=== PATIENT | male | born 1950 | race Caucasian/White ===

== ENCOUNTER → 2018-12-15 13:20 | Outpatient (CLI) | payer MEDICARE, SELFPAY ==
--- NOTE | 2018-12-15 | DI.MRI.S_ITS ---
PROCEDURE: MR CERVICAL SPINE WO CON INDICATIONS: CERVICAL STENOSIS/CHRONIC HEADACHES TECHNIQUE: Noncontrast sagittal T1 spin echo and T2 fast spin echo, sagittal STIR, foraminal oblique sagittal T2 fast spin echo, and axial gradient echo or T2 fast spin echo through the cervical spine. COMPARISON: [facility], MR, MR HEAD/BRAIN WO CON, 12/15/2018, 14:17. FINDINGS: Image quality: This examination is limited by involuntary motion artifact. Alignment and Curvature: There is normal bony alignment. Bone Marrow: Marrow demonstrates normal overall signal. Spinal Cord: Visualized spinal cord has normal size and signal. No cerebellar tonsillar herniation. Paraspinous Soft Tissues: No paravertebral masses. Prevertebral soft tissues are normal in thickness. C2-C3: Moderate loss of disc height is seen. Loss of disc signal is seen. Mild to moderate disc osteophyte complex is seen, which is eccentric to the right. Mild facet joint hypertrophy is seen. There is moderate bilateral neural foraminal narrowing seen. Minimal central canal narrowing is seen. C3-C4: Moderate loss of disc height is seen. Loss of disc signal is seen. Moderate disc osteophyte complex is seen, which is eccentric to the right. There is moderate to prominent right-sided and moderate left-sided neural foraminal narrowing seen. Moderate to severe right-sided and at least moderate left-sided neural foraminal narrowing is seen. Moderate central canal narrowing is seen, with associated mass effect upon the ventral spinal cord. C4-C5: Moderate to severe loss of disc height and disc signal are seen. Moderate disc osteophyte complex is seen, which is eccentric to the right. Moderate facet hypertrophy is seen, right worse than left. There is moderate to severe bilateral neural foraminal narrowing seen. Moderate central canal narrowing is seen. There is associated mass effect upon the ventral spinal cord. C5-C6: Moderate to severe loss of disc height and disc signal are seen. At least moderate disc osteophyte complex is seen. Uncovertebral joint hypertrophy is seen at this level. At least moderate bilateral neural facet hypertrophy is seen. There is moderate to severe bilateral neural foraminal narrowing seen at this level. At least moderate central canal narrowing is seen, initiated mass effect upon the ventral spinal cord. C6-C7: At least moderate loss of disc height and disc signal can be seen. Moderate disc osteophyte complex is seen, which is eccentric to the left. Moderate bilateral facet hypertrophy is seen, right worse than left. There is at least moderate right-sided and moderate to severe left-sided neural foraminal narrowing seen and mild to moderate central canal narrowing is seen. C7-T1: At least moderate loss of disc height and disc signal can be seen. Moderate to prominent disc osteophyte complex is seen. Moderate facet joint hypertrophy is seen. There is moderate to severe bilateral neural foraminal narrowing seen, right worse than left. Moderate central canal narrowing is seen, with minimal mass effect upon the ventral spinal cord. IMPRESSION: Multiple levels of cervical spine degenerative change are seen, which are overall most prominent at the C4-C5 and C5-C6 levels. Dictated by: Rojas Kenney M.D. on 12/17/2018 at 9:42 Approved by: Rojas Kenney M.D. on 12/17/2018 at 9:48
--- NOTE | 2018-12-15 | DI.MRI.S_ITS ---
PROCEDURE: MR HEAD/BRAIN WO CON INDICATIONS: CERVICAL STENOSIS/CHRONIC HEADACHES TECHNIQUE: Non-contrast axial T1 spin echo, axial T2 fast spin echo, sagittal and axial FLAIR, coronal T2 fast spin echo, axial gradient echo, axial diffusion and ADC through the brain. COMPARISON: None. FINDINGS: Image quality: Excellent. CSF spaces: Ventricles appear symmetric in size and shape. Basal cisterns are patent. No extra-axial fluid collections. Brain: No intracranial bleeds or mass effects. There is cerebral volume loss for age. There are periventricular and deep white matter chronic small vessel ischemic changes. Brainstem appears normal. Diffusion-weighted images show no acute ischemic insults. No chronic ischemic insults. Normal intravascular flow voids are present. Skull and face: Calvarial bone marrow is normal in signal. Orbits are normal. Sinuses: Sinuses and mastoids are clear. IMPRESSION: Moderate microvascular atherosclerotic change in the deep white matter of each hemisphere but no sign of acute or subacute stroke, mass lesion, or hemorrhage. Dictated by: Kj Anders M.D. on 12/17/2018 at 10:10 Approved by: Kj Anders M.D. on 12/17/2018 at 10:11
== END ==
PROVIDERS: PCP Family Medicine; Visit Provider Family Medicine
DX: M47.812 Spondylosis without myelopathy or radiculopathy, cervical region (principal); M48.02 Spinal stenosis, cervical region; R51 Headache
CPT/HCPCS: 70551; 72141

== ENCOUNTER 2020-05-21 11:55 | Inpatient (IN) | payer MEDICARE, SELFPAY ==
[2020-05-21] VITALS (23 sets, daily range): BP systolic 101–131; BP diastolic 70–89; PULSE 72–93; RESP 11–22; TEMP 36.2–36.9; O2SAT 85–100; BMI 24.1
--- NOTE | 2020-05-21 | DI.RAD.S_ITS ---
PROCEDURE: XR HIP LT 1V INDICATIONS: INTRA OP LEFT HIP TECHNIQUE: 2 view(s) of the hip acquired. COMPARISON: None. FINDINGS: Bones: Patient is status post left hip arthroplasty, with hardware components in expected positions. The hip joint appears congruent. The visualized bony structures appear intact. Soft tissues: Overlying postoperative changes are noted. No suspicious soft tissue densities. IMPRESSION: Postsurgical changes compatible with left hip arthroplasty. Dictated by: Krystal Jolly MD, PhD on 05/21/2020 at 17:58 Approved by: Krystal Jolly MD, PhD on 05/21/2020 at 17:59
--- NOTE | 2020-05-21 | DI.RAD.S_ITS ---
PROCEDURE: XR PELVIS 1-2V INDICATIONS: ANTERIOR LEFT HIP, post op TECHNIQUE: 1 view of the lower pelvis acquired. [facility] 11[facility], 10:36. FINDINGS: Bones: Patient is status post left hip arthroplasty, with hardware components in expected positions. The hip joint appears congruent. The visualized bony structures appear intact. Soft tissues: Overlying postoperative changes are noted. No suspicious soft tissue densities. IMPRESSION: Postop changes from left total hip arthroplasty with anatomic left hip alignment. Prior right total hip arthroplasty. No fracture or dislocation. Dictated by: Denver Segovia M.D. on 05/21/2020 at 17:22 Approved by: Denver Segovia M.D. on 05/21/2020 at 17:23
--- NOTE | 2020-05-21 12:08 | ED.GENADULT ---
HPI - General Adult General Chief complaint: Syncope Stated complaint: syncope / hip fracture Time Seen by Provider: 05/21/20 12:00 Source: patient and EMS Mode of arrival: EMS Limitations: no limitations History of Present Illness HPI narrative: 70-year-old gentleman with a history of heart failure and COPD was bending over fixing a toilet earlier today. Stood up and as he was walking out of the bathroom began feeling lightheaded and within 20 seconds new that he was going to faint. Tried to hold on to the edge of the stairs but felt himself falling onto his left hip. He states that he did not hit his head. There was no loss of bowel or bladder and no seizure-like activity. He complains of no chest pain, dyspnea, palpitations, diaphoresis, abdominal pain. Has not recently had any fevers, cough, chills. He states he has been quite active over the last number number of days with no ill effects at all. He states that he typically uses inhalers and his medicines to help with congestive heart failure none of which she took this morning. He is complaining of left hip pain 05/30 with any movement and pain-free while at rest. He is able to move all toes and has full sensation and pulses distally. Related Data Home Medications Medication Instructions Recorded Confirmed [MULTIVITAMIN] PO DAILY #0 06/03/11 acetaminophen [Tylenol Extra 500 mg PO BID #0 04/09/13 05/21/20 Strength] [PROBIOTICS] Q DAY #0 10/25/16 Wellbutrin XL 150 mg PO BID 05/21/20 05/21/20 duloxetine 60 mg PO BEDTIME 05/21/20 05/21/20 furosemide 30 mg PO DAILY 05/21/20 05/21/20 lisinopril 5 mg PO DAILY 05/21/20 05/21/20 metoprolol succinate 25 mg PO DAILY 05/21/20 05/21/20 mupirocin 1 applic TOPICAL QID 05/21/20 05/21/20 triamcinolone acetonide 0 gm TOPICAL BID PRN 05/21/20 05/21/20 Previous Rx's Medication Instructions Recorded Combivent Respimat 1 puff INH QID #3 inh 05/13/16 fluticasone propionate [Flonase 0 INTRANASAL SEE INSTRUCTIONS #1 05/02/17 Allergy Relief] bot fluoxetine 20 mg PO QDAY #90 cap 12/28/16 acetaminophen 975 mg PO TID #40 tab 05/22/20 aspirin 81 mg PO BID #40 tab 05/22/20 docusate sodium [DOK] 100 mg PO BID #40 cap 05/22/20 oxycodone 5 mg PO Q4-6H PRN #40 tab 05/22/20 Allergies Allergy/AdvReac Type Severity Reaction Status Date / Time hy- [From Vertical Acuity] Allergy Intermediate INTRAARTICULAR Verified 05/21/20 12:02 SWELLING, PAIN moxifloxacin Allergy Mild RASH Verified 05/21/20 12:02 Review of Systems Review of Systems Narrative: Remainder of review of systems including constitutional, ENT, cardiovascular, respiratory, GI, , musculoskeletal, skin, neurologic and psychiatric systems reviewed and are unremarkable except as noted in HPI. Patient History Medical History Chronic obstructive pulmonary disease (06/13/16) Congestive heart failure (Acute) Malignant neoplasm of prostate (07/29/16) Mixed hyperlipidemia (06/13/16) Osteoporosis (06/13/16) Surgical History History of carpal tunnel repair History of hip replacement Status post appendectomy Status post knee surgery Status post knee surgery Family History Father Heart disease Mother Hypertension Mental health problem COPD (chronic obstructive pulmonary disease) Social History household members: spouse Smoking Status: Former smoker Smoking Status: Unknown if ever smoked alcohol intake frequency: holidays/special occasions only Substance Use Type: does not use Exam Narrative Exam Narrative: General: Healthy appearing, in no acute distress. Able to give a complete and coherent history. Well-nourished well-developed HEENT: Moist mucous membranes, normal sclera with reactive pupils, no abrasions or contusions to the head Neck: No JVD, supple, no cervical spine tenderness Respiratory: Lungs with minimal scattered wheezes in all lung dejesus but no rales no rhonchi. Full and symmetrical air movement Cardiac: Regular rate and rhythm no murmurs no bruits Abdomen: Soft nontender good bowel tones, no flank pain Skin: Warm and dry, no rashes Neurologic: Grossly neurologically intact with no obvious asymmetries or abnormalities Extremities: Tender over the left greater trochanter with mild tenderness with pelvic ring manipulation. He has no low or mid back tenderness to palpation. Left leg is slightly foreshortened no significant rotational component appreciated at the ankle Psych: Cooperative, appropriate insight and affect Initial Vital Signs Initial Vital Signs: Vital Signs Temperature 98.4 F 05/21/20 11:58 Pulse Rate 80 05/21/20 11:58 Respiratory Rate 16 05/21/20 11:58 Blood Pressure 126/89 05/21/20 11:58 Pulse Oximetry 91 05/21/20 11:58 Course Orders Ordered: Acetaminophen (Tylenol) 975 mg PO TID COUNT INCLUDES THE [facility] Last Admin: 05/22/20 10:08 Dose: 975 mg Documented by: Admin: 05/21/20 21:12 Dose: 975 mg Documented by: JESSICA Al Hydrox/Mg Hydrox/Simethicone (Maalox Plus) 30 ml PO Q6HR PRN PRN Reason: Dyspepsia Albuterol/Ipratropium (Combivent Respimat) 1 puff INH QID COUNT INCLUDES THE [facility] Last Admin: 05/22/20 09:06 Dose: 1 puff Documented by: Admin: 05/21/20 21:16 Dose: 1 puff Documented by: JESSICA Aspirin (Aspirin Ec) 81 mg PO BID COUNT INCLUDES THE [facility] Last Admin: 05/22/20 10:08 Dose: 81 mg Documented by: Admin: 05/21/20 21:11 Dose: 81 mg Documented by: JESSICA Bisacodyl (Dulcolax) 10 mg ND DAILY PRN PRN Reason: Constipation Bupropion HCl (Wellbutrin Xl) 150 mg PO BID COUNT INCLUDES THE [facility] Last Admin: 05/22/20 10:10 Dose: 150 mg Documented by: KYRIE Calcium Carbonate (Tums) 1,000 mg PO Q4HR PRN PRN Reason: Dyspepsia Calcium Carbonate/Cholecalciferol (Oyster Shell 500-Vit D3 200 Tb) 1 each PO BIDWM COUNT INCLUDES THE [facility] Last Admin: 05/22/20 10:08 Dose: 1 each Documented by: KYRIE Docusate Sodium (Colace) 100 mg PO BID COUNT INCLUDES THE [facility] Last Admin: 05/22/20 10:09 Dose: Not Given Documented by: Admin: 05/21/20 21:11 Dose: 100 mg Documented by: JESSICA Duloxetine HCl (Cymbalta) 60 mg PO BEDTIME COUNT INCLUDES THE [facility] Last Admin: 05/21/20 21:12 Dose: 60 mg Documented by: JESSICA Furosemide (Lasix) 30 mg PO DAILY COUNT INCLUDES THE [facility] Hydromorphone HCl (Dilaudid) 1 mg IV Q6HR PRN PRN Reason: Pain, Severe (7-10) Hydromorphone HCl (Dilaudid) 0.5 mg IV Q6HR PRN PRN Reason: Pain, Moderate (4-6) Lisinopril (Zestril) 5 mg PO DAILY COUNT INCLUDES THE [facility] Magnesium Hydroxide (Milk Of Magnesia) 30 ml PO DAILY PRN PRN Reason: Constipation Metoprolol Succinate (Toprol Xl) 25 mg PO DAILY COUNT INCLUDES THE [facility] Mupirocin (Bactroban Oint) 1 applic TOP QID COUNT INCLUDES THE [facility] Last Admin: 05/22/20 10:10 Dose: Not Given Documented by: Admin: 05/21/20 21:13 Dose: Not Given Documented by: JESSICA Naloxone HCl (Narcan) 0.2 mg IV Q2MIN PRN PRN Reason: Opiate Reversal Ondansetron HCl (Zofran Odt) 4 mg PO Q4HR PRN PRN Reason: Nausea Ondansetron HCl (Zofran) 4 mg IV Q4HR PRN PRN Reason: Nausea And Vomiting Oxycodone HCl (Percolone) 5 mg PO Q3HR PRN PRN Reason: Pain, Moderate (4-6) Last Admin: 05/22/20 02:07 Dose: 5 mg Documented by: JULES Polyethylene Glycol (Miralax) 17 gm PO DAILY PRN PRN Reason: Constipation Promethazine HCl (Phenadoz) 12.5 mg ND Q6HR PRN PRN Reason: Nausea And Vomiting Tamsulosin HCl (Flomax) 0.4 mg PO DAILY COUNT INCLUDES THE [facility] Last Admin: 05/22/20 10:10 Dose: Not Given Documented by: KYRIE Discontinued Medications Albuterol (Ventolin) 2.5 mg INH NOW PRN PRN Reason: Coughing, Wheezing, Dyspnea Docusate Sodium (Colace) 100 mg PO BID COUNT INCLUDES THE [facility] Fentanyl (Sublimaze) 0 mcg IV Q5M PRN PRN Reason: Pain, Moderate (4-6) Fluoxetine HCl (Prozac) 20 mg PO DAILY COUNT INCLUDES THE [facility] Hydromorphone HCl (Dilaudid) 0.5 mg IV Q15MIN PRN PRN Reason: Pain, Last Admin: 05/21/20 13:48 Dose: 0.5 mg Documented by: Admin: 05/21/20 12:22 Dose: 0.5 mg Documented by: JAKUB Hydromorphone HCl (Dilaudid) 0 mg IV Q5M PRN PRN Reason: Pain, Severe (7-10) Sodium Chloride (Normal Saline 0.9%) 1,000 mls @ 150 mls/hr IV CONT MARIAN Last Infusion: 05/21/20 13:29 Dose: 0 mls/hr Documented by: Admin: 05/21/20 12:34 Dose: 150 mls/hr Documented by: JAKUB Lactated Ringer's (Lactated Ringers) 1,000 mls @ 42 mls/hr IV CONT MARIAN Last Infusion: 05/21/20 18:20 Dose: 0 mls/hr Documented by: Admin: 05/21/20 15:15 Dose: 42 mls/hr Documented by: Infusion: 05/21/20 15:15 Dose: 0 mls/hr Documented by: Infusion: 05/21/20 14:39 Dose: 0 mls/hr Documented by: Admin: 05/21/20 13:32 Dose: 42 mls/hr Documented by: JAKUB Cefazolin Sodium/Dextrose (Ancef) 2 gm in 100 mls @ 200 mls/hr IV NOW ONE Stop: 05/21/20 16:52 Last Infusion: 05/21/20 16:00 Dose: 0 mls/hr Documented by: Admin: 05/21/20 15:30 Dose: 200 mls/hr Documented by: LEONARD Lactated Ringer's (Lactated Ringers) 1,000 mls @ 125 mls/hr IV CONT MAIRAN Last Admin: 05/21/20 23:41 Dose: Not Given Documented by: JESSICA Cefazolin Sodium/Dextrose (Ancef) 2 gm in 100 mls @ 200 mls/hr IV Q8H MARIAN Stop: 05/22/20 07:59 Last Admin: 05/22/20 06:32 Dose: 200 mls/hr Documented by: Infusion: 05/22/20 02:07 Dose: 0 mls/hr Documented by: Admin: 05/22/20 00:20 Dose: 200 mls/hr Documented by: JULES Lactated Ringer's (Lactated Ringers) 1,000 mls @ 125 mls/hr IV CONT MARIAN Stop: 05/22/20 00:09 Last Admin: 05/21/20 20:16 Dose: 125 mls/hr Documented by: JESSICA Ketorolac Tromethamine (Toradol) 30 mg INJ NOW ONE Stop: 05/21/20 16:29 Last Admin: 05/21/20 16:29 Dose: 30 mg Documented by: JOSE Morphine Sulfate (Morphine) 4 mg INJ NOW ONE Stop: 05/21/20 16:28 Last Admin: 05/21/20 16:27 Dose: 4 mg Documented by: JOSE Ondansetron HCl (Zofran) 4 mg IV PRN PRN PRN Reason: nausea Last Admin: 05/21/20 12:22 Dose: 4 mg Documented by: JAKUB Ondansetron HCl (Zofran) 4 mg IV NOW PRN PRN Reason: Nausea And Vomiting Ondansetron HCl (Zofran) 4 mg IV Q8HR PRN PRN Reason: Nausea And Vomiting Oxycodone HCl (Percolone) 5 mg PO Q6HR PRN PRN Reason: Pain, Moderate (4-6) Oxycodone/Acetaminophen (Percocet 5/325) 1 tab PO PACUNOW PRN PRN Reason: Mild or Moderate Pain Ropivacaine (Naropin 0.5% Pf 20ml) 40 ml INJ NOW ONE Stop: 05/21/20 16:25 Last Admin: 05/21/20 16:26 Dose: 40 ml Documented by: JOSE Tranexamic Acid (Cyklokapron) 1,000 mg IV NOW ONE Stop: 05/21/20 16:25 Last Admin: 05/21/20 17:25 Dose: 1,000 mg Documented by: Admin: 05/21/20 16:10 Dose: 1,000 mg Documented by: GABY Vital Signs Vital signs: Vital Signs - 8 hr 05/21/20 11:58 05/21/20 12:08 05/21/20 12:12 Temperature 98.4 F Pulse Rate 80 72 77 Respiratory Rate 16 11 L Blood Pressure 126/89 123/72 Pulse Oximetry 91 89 L 88 L 05/21/20 12:31 05/21/20 12:50 05/21/20 13:00 Temperature Pulse Rate 79 84 Respiratory Rate 16 Blood Pressure 130/86 Pulse Oximetry 95 85 L 05/21/20 13:30 Temperature Pulse Rate 80 Respiratory Rate 17 Blood Pressure 130/78 Pulse Oximetry 96 Medical Decision Making Medical Records Medical records reviewed: Yes I reviewed the patient's medical records. Lab Data Lab results reviewed: Yes I reviewed the patient's lab results. Result diagrams: 05/22/20 04:55 05/21/20 12:05 Labs: Lab Results 05/21/20 05/21/20 05/21/20 Range/Units 12:05 12:05 12:05 WBC 9.4 (4.5-11.0) X10^3/uL RBC 4.31 L (4.5-5.9) X10^6/uL Hgb 13.2 L (13.5-17.5) g/dL Hct 40.2 L (41-53) % MCV 93.3 (80-100) fL MCH 30.5 (26-34) PG MCHC 32.7 (30-36) % RDW 14.1 (11.6-14.8) % Plt Count 245 (150-400) X10^3/uL Neut % (Auto) 83.9 H (50-75) % Lymph % (Auto) 9.6 L (25-40) % [place] % (Auto) 5.7 (3-14) % Eos % (Auto) 0.6 L (2-4) % Baso % (Auto) 0.2 (0-2) % Neut # (Auto) 7900 H (3859-1844) /uL Lymph # (Auto) 900 L (9450-0161) /uL [place] # (Auto) 500 (0-900) /uL Eos # (Auto) 100 (0-450) /uL Baso # (Auto) 0 (0-100) /uL Sodium 139 (137-145) mmol/L Potassium 4.7 (3.4-5.1) mmol/L Chloride 104 (98-107) mmol/L Carbon Dioxide 32 (22-32) mmol/L BUN 25 H (9-20) mg/dL Creatinine 0.87 (0.66-1.25) mg/dL Estimated GFR > 60.0 (>60) mL/min BUN/Creatinine Ratio 28.7 H (6-22) Glucose 105 (80-110) mg/dL Calcium 9.2 (8.4-10.2) mg/dL Magnesium (1.6-2.3) mg/dL Total Bilirubin 0.5 (0.2-1.3) mg/dL AST 32 (17-59) IU/L ALT 21 (<50) IU/L Alkaline Phosphatase 71 (38-126) U/L Troponin I < 0.012 (0.01-0.034) ng/mL Total Protein 7.2 (6.3-8.2) g/dL Albumin 4.1 (3.5-5.0) g/dL Globulin 3.1 (1.7-4.1) g/dL Albumin/Globulin Ratio 1.3 (1.0-2.8) COVID-19 PCR (Negative) Blood Type O Positive Antibody Screen Negative 05/21/20 05/21/20 Range/Units 12:05 12:30 WBC (4.5-11.0) X10^3/uL RBC (4.5-5.9) X10^6/uL Hgb (13.5-17.5) g/dL Hct (41-53) % MCV (80-100) fL MCH (26-34) PG MCHC (30-36) % RDW (11.6-14.8) % Plt Count (150-400) X10^3/uL Neut % (Auto) (50-75) % Lymph % (Auto) (25-40) % [place] % (Auto) (3-14) % Eos % (Auto) (2-4) % Baso % (Auto) (0-2) % Neut # (Auto) (0204-7851) /uL Lymph # (Auto) (4368-9155) /uL [place] # (Auto) (0-900) /uL Eos # (Auto) (0-450) /uL Baso # (Auto) (0-100) /uL Sodium (137-145) mmol/L Potassium (3.4-5.1) mmol/L Chloride (98-107) mmol/L Carbon Dioxide (22-32) mmol/L BUN (9-20) mg/dL Creatinine (0.66-1.25) mg/dL Estimated GFR (>60) mL/min BUN/Creatinine Ratio (6-22) Glucose (80-110) mg/dL Calcium (8.4-10.2) mg/dL Magnesium 1.9 (1.6-2.3) mg/dL Total Bilirubin (0.2-1.3) mg/dL AST (17-59) IU/L ALT (<50) IU/L Alkaline Phosphatase (38-126) U/L Troponin I (0.01-0.034) ng/mL Total Protein (6.3-8.2) g/dL Albumin (3.5-5.0) g/dL Globulin (1.7-4.1) g/dL Albumin/Globulin Ratio (1.0-2.8) COVID-19 PCR Negative (Negative) Blood Type Antibody Screen ECG Data Attestation: I personally reviewed and interpreted this ECG as follows: Interpretation: Sinus rhythm at a rate of 68 Significant right axis deviation, right bundle branch block No acute ischemia No EKGs available for immediate comparison MDM Narrative Medical decision making narrative: Presumed orthostatic hyptension with fall. No evidence of infection, sepsis, ACS/IA, stroke. Fracture to L femur at surgical neck. 1:10 call to selvin Campbell. Will review films when out of the OR. 1:20 requests medicine admit 130 medicine paged, discussed with Dr Romero 135 patient informed of plans for admission, surgery anticipated and pictures of fracture are shared with patient and his partner safe for transfer Discharge Plan Departure Patient Disposition: Admitted As Inpatient Clinical Impression: Vasovagal syncope Closed hip fracture Qualifiers: Encounter type: initial encounter Laterality: left Qualified Code(s): S72.002A - Fracture of unspecified part of neck of left femur, initial encounter for closed fracture Discharge Date/Time: 05/21/20 14:39 Instructions: DI for Hip Replacement Referrals: Jem Johnson MD [Physician] - (2 weeks) Kendrick Pace MD [Primary Care Provider] - Admit Date/Time: 05/21/20 13:51 Admit Provider: Jocelyn Romero
--- NOTE | 2020-05-21 12:14 | DI.RAD.S_ITS ---
PROCEDURE: XR HIP W PEL IF DONE LT 2V INDICATIONS: fall, pain TECHNIQUE: AP pelvis with lateral view(s) of the left hip(s). COMPARISON: [facility], [facility], HIPS BILATERAL, 11/08/2013, 14:30. FINDINGS: Suboptimal patient positioning due to discomfort. Bones: Left femoral neck fracture. Expected postop alignment of right hip arthroplasty. Lumbar spondylosis and facet disease. Soft tissues: The visualized bowel gas pattern is normal. No suspicious soft tissue calcifications. IMPRESSION: Left femoral neck fracture Dictated by: Malcom Rivero M.D. on 05/21/2020 at 17:05 Approved by: Malcom Rivero M.D. on 05/21/2020 at 17:06
--- NOTE | 2020-05-21 12:15 | DI.RAD.S_ITS ---
PROCEDURE: XR CHEST 1V INDICATIONS: syncope TECHNIQUE: One view of the chest was acquired. COMPARISON: [facility], CHEST 2 VIEW, 12/25/2015, 10:25. FINDINGS: Suboptimal due to difficulty with patient positioning, and overlying support equipment Surgical changes and devices: None. Lungs and pleura: Lungs are clear. No pleural effusions or pneumothorax. Mediastinum: Mediastinal contours appear normal. Heart size is normal. Bones and chest wall: No suspicious bony lesions. Overlying soft tissues appear unremarkable. IMPRESSION: No acute disease Dictated by: Malcom Rivero M.D. on 05/21/2020 at 17:08 Approved by: Malcom Rivero M.D. on 05/21/2020 at 17:10
[2020-05-21] MEDS: ONDANSETRON 4 MG/2 ML INJ IV (12:22)
[2020-05-21] MEDS: HYDROMORPHONE 0.5 MG INJ IV ×2 (12:22→13:48)
[2020-05-21 12:34] LABS: Add Manual Diff / Slide Review NO; Basophils Absolute Auto 0 /uL (0-100); Basophils Percent Auto 0.2 % (0-2); Eosinophils Absolute Auto 100 /uL (0-450); Eosinophils Percent Auto 0.6 % (2-4); Hematocrit 40.2 % (41-53); Hemoglobin 13.2 g/dL (13.5-17.5); Lymphocytes Absolute Auto 900 /uL (1100-4500); Lymphocytes Percent Auto 9.6 % (25-40); Mean Corpuscular HGB Conc 32.7 % (30-36); Mean Corpuscular Hemoglobin 30.5 PG (26-34); Mean Corpuscular Volume 93.3 fL (80-100); Monocytes Absolute Auto 500 /uL (0-900); Monocytes Percent Auto 5.7 % (3-14); Neutrophils Absolute Auto 7900 /uL (1500-7000); Neutrophils Percent Auto 83.9 % (50-75); Platelet Count 245 X10^3/uL (150-400); Red Blood Cell Count 4.31 X10^6/uL (4.5-5.9); Red Cell Distribution Width 14.1 % (11.6-14.8); White Blood Cell Count 9.4 X10^3/uL (4.5-11.0)
[2020-05-21] MEDS: SODIUM CHLORIDE 0.9% 1,000 ML 150 ML IV (12:34)
[2020-05-21 12:35] LABS: Alanine Aminotransferase 21 IU/L (<50); Albumin 4.1 g/dL (3.5-5.0); Albumin Globulin Ratio 1.3 (1.0-2.8); Alkaline Phosphatase 71 U/L (38-126); Aspartate Aminotransferase 32 IU/L (17-59); BUN Creatinine Ratio 28.7 (6-22); Bilirubin Total 0.5 mg/dL (0.2-1.3); Blood Urea Nitrogen 25 mg/dL (9-20); Calcium 9.2 mg/dL (8.4-10.2); Carbon Dioxide 32 mmol/L (22-32); Chloride 104 mmol/L (98-107); Estimated Glomerular Filt Rate > 60.0 mL/min (>60); Globulin 3.1 g/dL (1.7-4.1); Glucose 105 mg/dL (80-110); HEMOLYSIS < 15 (0-50); Potassium 4.7 mmol/L (3.4-5.1); Sodium 139 mmol/L (137-145); Total Protein 7.2 g/dL (6.3-8.2)
[2020-05-21 12:47] LABS: Troponin I < 0.012 ng/mL (0.01-0.034)
[2020-05-21 12:57] LABS: COVID19 -Nasal RAPID Negative (Negative)
[2020-05-21] MEDS: LACTATED RINGERS 1,000 ML 42 ML IV ×2 (13:32→15:15)
--- NOTE | 2020-05-21 13:46 | PC.NURSE ---
Addendum entered by Ranjit Dowd 05/21/20 13:47: lungs sounds are clear. no pitting edema on lower extremities Original Note: patient has a known history of heart disease
--- NOTE | 2020-05-21 15:03 | PM.HP.1 ---
History of Present Illness History of Present Illness Date Patient Seen: 05/21/20 Chief complaint: syncope / hip fracture Narrative: Josr Alaniz is a 70-year-old male with a past medical history significant for COPD, congestive heart failure, and depression who presented to the ED after with left hip pain and inability to ambulate after vasovagal syncope. The patient reports he was bending over fixing his toilet then stood up quickly and began ambulating down the antony when he began to feel lightheaded. He reports he knew he was going to pass out and grabbed the railing at the edge of his stairs but proceeded to syncopize and fell onto his left hip. He reports immediate left hip pain and inability to bear weight or ambulate. He did not hit his head. There was no loss of bowel or bladder and no seizure-like activity. He endorses significant left hip pain with any movement but no pain at rest. He has no other complaints and denies headache, cough, shortness of breath, chest pain, palpitations, diaphoresis, abdominal pain nausea, vomiting, fever, chills, dysuria, diarrhea or constipation. His spouse Isabel reports he has been quite active. He does report episodes of dizziness and lightheadedness recently. He states that he typically uses inhalers and his medicines to help with congestive heart failure none of which he took this morning. He is able to move all toes and has full sensation and pulses distally. PCP Dr. Pace on [place]. Patient History Medical History Chronic obstructive pulmonary disease (06/13/16) Congestive heart failure (Acute) Malignant neoplasm of prostate (07/29/16) Mixed hyperlipidemia (06/13/16) Osteoporosis (06/13/16) Surgical History History of carpal tunnel repair History of hip replacement Status post appendectomy Status post knee surgery Status post knee surgery Family & Social History Family History Father Heart disease Mother Hypertension Mental health problem COPD (chronic obstructive pulmonary disease) Safety & Behavioral: Feels Safe in Current Yes Environment Been Physically Hurt or No Threatened By a Person Tobacco & Substance use: Smoking Status former smoker, 2 ppd x 50 years alcohol intake frequency holiday/special occasion Substance Use Type does not use Meds Home Medications and Allergies Home Medications Medication Instructions Recorded Confirmed Type [MULTIVITAMIN] PO DAILY #0 06/03/11 History acetaminophen [Tylenol Extra 500 mg PO BID #0 04/09/13 05/21/20 History Strength] Combivent Respimat 1 puff INH QID #3 inh 05/13/16 05/21/20 Rx [PROBIOTICS] Q DAY #0 10/25/16 History fluticasone propionate [Flonase 0 INTRANASAL SEE INSTRUCTIONS #1 12/20/16 Rx Allergy Relief] bot fluoxetine 20 mg PO QDAY #90 cap 12/28/16 05/21/20 Rx Wellbutrin XL 150 mg PO BID 05/21/20 05/21/20 History duloxetine 60 mg PO BEDTIME 05/21/20 05/21/20 History furosemide 30 mg PO DAILY 05/21/20 05/21/20 History lisinopril 5 mg PO DAILY 05/21/20 05/21/20 History metoprolol succinate 25 mg PO DAILY 05/21/20 05/21/20 History mupirocin 1 applic TOPICAL QID 05/21/20 05/21/20 History triamcinolone acetonide 0 gm TOPICAL BID PRN 05/21/20 05/21/20 History Allergies Allergy/AdvReac Type Severity Reaction Status Date / Time - [From [facility]] Allergy Intermediate INTRAARTICULAR Verified 05/21/20 12:02 SWELLING, PAIN moxifloxacin Allergy Mild RASH Verified 05/21/20 12:02 Review of Systems Review of Systems Narrative: A 10 system comprehensive review of systems was conducted with the patient and found to be negative except as above in the History of Present Illness. Exam Vital Signs (past 8 hours): - 05/21/20 11:58 05/21/20 12:08 05/21/20 12:12 Temperature 98.4 F Pulse Rate 80 72 77 Respiratory Rate 16 11 L Blood Pressure 126/89 123/72 Pulse Oximetry 91 89 L 88 L 05/21/20 12:31 05/21/20 12:50 05/21/20 13:00 Temperature Pulse Rate 79 84 Respiratory Rate 16 Blood Pressure 130/86 Pulse Oximetry 95 85 L 05/21/20 13:30 10/01/20 14:00 Temperature Pulse Rate 80 87 Respiratory Rate 17 22 Blood Pressure 130/78 122/82 Pulse Oximetry 96 99 Oxygen Delivery Method Nasal Cannula Oxygen Flow Rate 2 Narrative Exam Narrative: General: Older male resting in bed and in no acute distress, appears older than stated age, well-developed, well-nourished, appropriately interactive. HEENT: Normocephalic, atraumatic. External ears without defect. Pupils equal, round, and reactive to light. Anicteric sclerae, moist conjunctivae, and no lid lag. Oropharynx free of erythema and cobble stoning with moist mucosa. Neck: Supple with full range of motion. No jugular venous distension. No lymphadenopathy or thyromegaly. Cardiovascular: Regular rate and rhythm without murmurs, rubs, or gallops appreciated. Pulmonary: Clear to auscultation bilaterally without crackles, wheezes, or rhonchi. Normal respiratory effort with no use of accessory muscles. Abdomen: Soft, bowel sounds present, nontender, nondistended. No hepatosplenomegaly or masses appreciated. Extremities: No clubbing, cyanosis, or edema. No obvious deformity of left hip or leg and neurovascularly intact with distal pulses, movement and sensation. Skin: Normal temperature, turgor, and texture; no rash, ulcers, or subcutaneous nodules appreciated. Neurological: Cranial nerves grossly intact. Psychiatric: Normal mood and affect. Alert and oriented to person, place, and time. Objective Labs Result Diagrams: 05/22/20 04:55 05/21/20 12:05 Labs: Laboratory Results - last 24 hr 05/21/20 05/21/20 05/21/20 12:05 12:05 12:05 WBC 9.4 RBC 4.31 L Hgb 13.2 L Hct 40.2 L MCV 93.3 MCH 30.5 MCHC 32.7 RDW 14.1 Plt Count 245 Neut % (Auto) 83.9 H Lymph % (Auto) 9.6 L [place] % (Auto) 5.7 Eos % (Auto) 0.6 L Baso % (Auto) 0.2 Neut # (Auto) 7900 H Lymph # (Auto) 900 L [place] # (Auto) 500 Eos # (Auto) 100 Baso # (Auto) 0 Sodium 139 Potassium 4.7 Chloride 104 Carbon Dioxide 32 BUN 25 H Creatinine 0.87 Estimated GFR > 60.0 BUN/Creatinine Ratio 28.7 H Glucose 105 Calcium 9.2 Total Bilirubin 0.5 AST 32 ALT 21 Alkaline Phosphatase 71 Troponin I < 0.012 Total Protein 7.2 Albumin 4.1 Globulin 3.1 Albumin/Globulin Ratio 1.3 COVID-19 PCR Blood Type O Positive Antibody Screen Negative 05/21/20 12:30 WBC RBC Hgb Hct MCV MCH MCHC RDW Plt Count Neut % (Auto) Lymph % (Auto) [place] % (Auto) Eos % (Auto) Baso % (Auto) Neut # (Auto) Lymph # (Auto) [place] # (Auto) Eos # (Auto) Baso # (Auto) Sodium Potassium Chloride Carbon Dioxide BUN Creatinine Estimated GFR BUN/Creatinine Ratio Glucose Calcium Total Bilirubin AST ALT Alkaline Phosphatase Troponin I Total Protein Albumin Globulin Albumin/Globulin Ratio COVID-19 PCR Negative Blood Type Antibody Screen Assessment & Plan Assessment & Plan narrative: Josr Alaniz is a 70-year-old male with a past medical history significant for COPD, congestive heart failure, and depression who presented to the ED after with left hip pain and inability to ambulate after vasovagal syncope. 1. Acute pathological left hip fracture, present on admission. Active. -Patient had a vasovagal syncopal episode in which he was bending over and stood up and began ambulating abruptly with lightheadedness and syncopal episode seconds later. No trauma to head. EKG, troponin, and electrolytes all unremarkable and likely represents vasovagal event from orthostatsis and rapid position changes. Patient fell on left hip and had instant left hip pain and inability to bear weight or ambulate. -Left hip x-ray demonstrated left femoral neck fracture. -Consulted orthopedic surgery, Dr. Johnson, who plans to perform a left total hip arthroplasty later this afternoon. Continue postoperative management, pain control and DVT prophylaxis per Orthopedic surgery. Continue aspirin 81 mg twice daily for DVT prophylaxis. Continue acetaminophen 975 mg 3 times daily, oxycodone 5 mg every 3 hours for moderate to severe pain and hydromorphone 0.5-1 mg every 6 hours as needed for severe breakthrough pain. -Continue calcium and vitamin-D supplementation. Patient will need to be treated for osteoporosis as an outpatient per PCP or Orthopedic surgery. -Ordered physical and occupational therapy evaluation treatment, pending. 2. COPD emphysema type, chronic, present on admission. Stable. -Does not represent acute COPD exacerbation. -Chest x-ray did not demonstrate any acute cardiopulmonary process. -COVID 19 negative. -Continue home albuterol 1 puff every 6 hours as needed for shortness of breath or wheezing. -Continue incentive spirometry 10 times an hour every 1 hour while awake to help prevent postoperative pneumonia. 3. Congestive heart failure, unknown type, chronic, present on admission. Stable. -Unclear type of heart failure and will request records from PCP's office. Does not represent acute CHF exacerbation. -Chest x-ray did not demonstrate any acute cardiopulmonary process. -Continue home furosemide 30 mg daily, lisinopril 5 mg daily and metoprolol succinate 25 mg daily. -Continue to monitor strict I&Os and daily weights. 4. Depression, chronic, present on admission. Stable. -Continue home duloxetine 60 mg daily and bupropion 150 mg twice daily. Code status: Full code, patient's spouse Isabel Alaniz is designated surrogate decision maker VTE prophylaxis: ASA, SCDs Patient is admitted under inpatient status with expected length of stay greater than 2 midnights due to severity of presenting symptoms, risk of adverse event, and complexity of treatment plan.
--- NOTE | 2020-05-21 15:14 | P.CONS_ITS ---
History of Present Illness Consult details Date Patient Seen: 05/21/20 Time Patient Seen: 15:14 Chief complaint: syncope / hip fracture Reason for consult: displaced left intra-capsular femoral neck fracture Requesting provider: Jocelyn Romero Narrative: Patient is a 70-year-old male with a past medical history significant for COPD, congestive heart failure, and depression who presented to the ED after a GLF from a syncopal episode with left hip pain and inability to ambulate. The patient reports he was bending over fixing his toilet then stood up quickly and began ambulating when he began to feel lightheaded. He reports he knew he was going to pass out and grabbed the railing at the edge of his stairs but fell onto his left hip. He reports immediate left hip pain and inability to bear weight or ambulate. He did not hit his head. He has significant left hip pain with any movement. He is complaining of left hip pain 10/10 with any movement and pain-free while at rest. He is able to move all toes and has full sensation and pulses distally. Of note, patient is status post right anterior total hip arthroplasty for osteoarthritis 5-[address] Palmer in telling him. He has done very well in regards to his right total hip arthroplasty. With regard to his left hip prior to his fall he did occasionally have pain in left hip this has been worsening over last 1 year. He describes the pain as pain in his groin. Meds Home Medications and Allergies Home Medications Medication Instructions Recorded Confirmed Type [MULTIVITAMIN] #0 06/03/11 History [VITAMIN D] 3,000 units PO Q DAY #0 06/03/11 History acetaminophen [Tylenol Extra 500 mg PO BID #0 04/09/13 05/21/20 History Strength] [TUMERIC] Q DAY #0 05/11/16 History naproxen sodium [Aleve] 220 mg PO Q DAY #0 05/11/16 History ipratropium-albuterol [Combivent 1 puff INH QID #3 inh 05/13/16 Rx Respimat] mupirocin 0 TOPICAL QID #30 g 05/23/16 Rx [PROBIOTICS] Q DAY #0 10/25/16 History fluticasone propionate [Flonase 0 INTRANASAL SEE INSTRUCTIONS #1 12/20/16 Rx Allergy Relief] bot psyllium husk [Metamucil] 0.52 gm PO QDAYP PRN #0 12/20/16 History fluoxetine 20 mg PO QDAY #90 cap 12/28/16 Rx triamcinolone acetonide 0 gm TOPICAL BID PRN #80 gm 01/10/17 Rx furosemide 30 mg PO 05/21/20 History Allergies Allergy/AdvReac Type Severity Reaction Status Date / Time hylan G-F 20 [From [facility]] Allergy Intermediate INTRAARTICULAR Verified 05/21/20 12:02 SWELLING, PAIN moxifloxacin Allergy Mild RASH Verified 05/21/20 12:02 Exam Vital Signs (past 8 hours): - 05/21/20 11:58 05/21/20 12:08 05/21/20 12:12 Temperature 98.4 F Pulse Rate 80 72 77 Respiratory Rate 16 11 L Blood Pressure 126/89 123/72 Pulse Oximetry 91 89 L 88 L 05/21/20 12:31 05/21/20 12:50 05/21/20 13:00 Temperature Pulse Rate 79 84 Respiratory Rate 16 Blood Pressure 130/86 Pulse Oximetry 95 85 L 05/21/20 13:30 05/21/20 14:00 05/21/20 15:05 Temperature 97.1 F L Pulse Rate 80 87 93 H Respiratory Rate 17 22 17 Blood Pressure 130/78 122/82 131/74 Pulse Oximetry 96 99 97 Oxygen Delivery Method Room Air Oxygen Flow Rate 2 Narrative Exam Narrative: Neurovascular intact left lower extremity, skin is intact over the hip, no rashes or skin abrasions. Pain with movement of the hip. Objective Labs Result Diagrams: 05/21/20 12:05 05/21/20 12:05 Labs: Laboratory Results - last 24 hr 05/21/20 05/21/20 05/21/20 12:05 12:05 12:05 WBC 9.4 RBC 4.31 L Hgb 13.2 L Hct 40.2 L MCV 93.3 MCH 30.5 MCHC 32.7 RDW 14.1 Plt Count 245 Neut % (Auto) 83.9 H Lymph % (Auto) 9.6 L [place] % (Auto) 5.7 Eos % (Auto) 0.6 L Baso % (Auto) 0.2 Neut # (Auto) 7900 H Lymph # (Auto) 900 L [place] # (Auto) 500 Eos # (Auto) 100 Baso # (Auto) 0 Sodium 139 Potassium 4.7 Chloride 104 Carbon Dioxide 32 BUN 25 H Creatinine 0.87 Estimated GFR > 60.0 BUN/Creatinine Ratio 28.7 H Glucose 105 Calcium 9.2 Total Bilirubin 0.5 AST 32 ALT 21 Alkaline Phosphatase 71 Troponin I < 0.012 Total Protein 7.2 Albumin 4.1 Globulin 3.1 Albumin/Globulin Ratio 1.3 COVID-19 PCR Blood Type O Positive Antibody Screen Negative 05/21/20 12:30 WBC RBC Hgb Hct MCV MCH MCHC RDW Plt Count Neut % (Auto) Lymph % (Auto) [place] % (Auto) Eos % (Auto) Baso % (Auto) Neut # (Auto) Lymph # (Auto) [place] # (Auto) Eos # (Auto) Baso # (Auto) Sodium Potassium Chloride Carbon Dioxide BUN Creatinine Estimated GFR BUN/Creatinine Ratio Glucose Calcium Total Bilirubin AST ALT Alkaline Phosphatase Troponin I Total Protein Albumin Globulin Albumin/Globulin Ratio COVID-19 PCR Negative Blood Type Antibody Screen Assessment & Plan Assessment & Plan narrative: Patient is a 70-year-old male who had a syncopal episode earlier today and fell onto his left hip. He has stated intracapsular femoral neck fracture. Of note he is status post right total hip arthroplasty performed 5/10 years ago is doing very well in regard to his right hip. This was performed due to our thought osteoarthritis. His left hip has been becoming increasingly more bothersome for him prior to the fall. I had a long discussion with the patient regarding his symptoms well as x-ray findings and possible treatment options. He is on the young side to have a hemiarthroplasty and I think that due to his previous history of groin pain on this side prior to the fall that this likely would not be a long-term satisfactory result for him. I think the patient would benefit from a total hip arthroplasty. I discussed the risks and benefits of surgery with the patient including the risk of infection, dislocation, iatrogenic fracture, DVT, PE, , damage to local structures such as vessels and nerves, need for future surgeries, incomplete relief of symptoms, etc patient demonstrates understanding of the risks and benefits of surgery and wishes to proceed with a left anterior total hip arthroplasty for a femoral neck fracture. COVID-19 COVID-19 status: Negative Result date/Date tested (Pos, Neg/Pending): 05/21/20 Time Spent With Patient Time with patient: 25 - 35 minutes
[2020-05-21] MEDS: CEFAZOLIN 2 GM/100 ML FROZ.PIGGY IV (15:30)
[2020-05-21] MEDS: TRANEXAMIC ACID 1,000 MG VIAL 1000 MG IV ×2 (16:10→17:25)
--- NOTE | 2020-05-21 16:18 | SUR.OPER ---
Supine on padded [place] table with bilateral legs secured in padded positioning boots and suspended in positioning spars, operative leg in traction per surgeon. Head on one pillow. Arm on non-operative side secured on padded armboard <90 degrees abduction. Arm on operative side padded and resting across chest then secured with tape over sheet. Padded perineal post in place per surgeon.
[2020-05-21] MEDS: ROPIVACAINE 0.5% PF 5 MG/ML 20ML VIAL 40 ML INJ (16:26)
[2020-05-21] MEDS: MORPHINE 4 MG/ML INJ INJ (16:27)
[2020-05-21] MEDS: KETOROLAC 30 MG/ML VIAL INJ (16:29)
--- NOTE | 2020-05-21 17:47 | P.OP_ITS ---
Operative Date/Time/Diagnoses Date of procedure: 05/21/20 Time of procedure: 17:47 Pre-op diagnosis: Left displaced intra-capsular femoral neck fracture Post-op diagnosis: same Procedure & Clinicians Procedure: Left anterior MIRLANDE for fracture Same procedure as scheduled: Yes Indications: left displaced intra-capsular femoral neck fracture Surgeon: Jem Johnson Computer Engineering Technologist: Sue Shukla Anesthesia Type: General and Spinal Operative Notes Findings: displaced intra-capsular femoral neck fracture Closure Type: primary Specimen(s): none sent Prosthetic devices, grafts, tissues, transplants, or devices: Masters and Nephew 60 mm R3 cup 60 mm x 36 mm neutral polyethylene liner 2x 25 mm screws Anthology size 11 standard offset femoral stem Biolox 36+ 4 ceramic head Estimated Blood Loss (mL): 200 Blood products transfused: none Procedure in detail: Patient was met in the preoperative holding area. Patient is a 62-year-old male who had a syncopal episode earlier today had a ground fall onto his left side he sustained intracapsular femoral neck fracture of his left hip. Patient is status post right anterior total hip arthroplasty performed approximately 5-10 years ago was doing well from this. Patient has the history of left anterior groin pain over the last 1-2 years. I discussed the patient's fracture pattern with him as well as his pre-existing symptoms regarding his left hip. I think patient would benefit from a left anterior total hip arthroplasty for treatment of a displaced intracapsular femoral neck fracture. I discussed the risks and benefits of surgery with him including the risks of infection, iatrogenic fracture, damage to local structures such as vessels and nerves, incomplete relief of symptoms, need for future surgeries, DVT, PE, dislocations, etc. Patient demonstrates understanding of the risks and benefits of surgery and wishes to proceed. Informed consent was signed. The left hip was marked by . Patient was then brought back in the operating room where he received epidural and anesthetic. He was then transferred onto the [place] table bilateral feet were placed in on the table boots. He was induced under general anesthesia in the left hip was prepped and draped in normal sterile fashion. A surgical time-out was performed verifying site and side of surgery as well as the name of the patient. A 7 cm long incision based proximally 2 cm distal and 1 cm lateral to the ASIS was made aiming towards the fibular head. Skin incision was made with a 10. Blade followed by electrocautery down to tensor fascia. A new 10. Blade was then used to incise the tensor fascia. An Allis clamp was placed on the medial leaflet of the tensor fascia and the tensor muscle itself was retracted laterally a Cobra was then placed over the superior femoral neck. A Meyerding was then placed on the lateral edge of the rectus femoris which was then retracted medially this gave us good exposure to the ascending circumflex femoral vessels which were coagulated using electrocautery. A 2nd cobra retractor was then placed underneath the inferior femoral neck and a 45 degree bent Hohmann was placed over the anterior wall the acetabulum giving us good exposure to the hip capsule. An inverse T shaped capsulotomy was then performed the superior and inferior leaflets were tagged with a FiberWire suture. Both Cobra Cobra as were then placed intracapsularly. This gave us good exposure to the femoral neck fracture. A reciprocating saw was then used to make a new femoral neck cut. The napkin ring of fracture was then removed and a corkscrew was then used to remove the femoral head. A 45 degree bent Hohmann was then placed over the anterior wall the acetabulum a 2nd 1 over the posterior wall the acetabulum giving us good exposure to the acetabulum the labrum was then removed as well as the pulvinar. I began reaming with a 46 mm Reamer working 1st medialized and then began up sizing and filling up the rest of the void. When I got to a 56 mm Reamer up brought in fluoroscopy and the subsequent several reamers were reamed under fluoroscopic guidance. At the 58 mm Reamer was started a good resistance as then selected a 59 mm Reamer which again had good resistance and a 60 mm 3 hole R3 cup was selected. This was placed under fluoroscopic guidance followed by placement of 2 screws. The 60 mm x 36 mm neutral offset polyethylene liner was then malleted in flushed into the cup and all tabs were checked to make sure they were flush with the acetabular rim. This point we turned our attention to the femoral side a femoral elevator hook was placed underneath the femur the femur was then externally rotated to 110? was extended to the floor and adducted. A 45 degree bent Hohmann was then placed over the superior portion of the capsule and the capsule was teased off the inner portion of the greater trochanter giving us exposure short external rotators. A controlled release the short external rotators was then performed and the femur was able to be elevated into the wound. A large retractors placed over the greater trochanter followed by a Kolb retractor over the calcar. This gave us good exposure to the femoral neck began by using a curved canal finer followed by chili pepper broach followed by size 1 broach I then began up sizing by 2s and ended at a size 7 broach I then began up sizing by ones until I got to a size 11 broach which had good rotational stability and fill. A calcar planed off this broach we then selected a standard offset neck and a 36+ 0 head the hip was then reduced and found to be stable with external rotation to 90? and extension to the floor fluoroscopy was brought in for leg length and our leg length and confirmation of correct stem placement. Stem had good canal fill and was not in excess varus or valgus. Was still a little short approximately 3 mm. The hip was then dislocated the broach was then removed and a size 11 femoral stem was selected and impacted into place. A 36+ 4 by locks head was then selected and placed onto the trunnion and malleted into place. The hip was then reduced brought through range of motion again with found to be stable. Local anesthetic injection was then performed. The wound was then irrigated with Betadine solution which was allowed to sit for several minutes prior to being lavage away with copious normal saline. The capsulotomy was then repaired using a running Ethibond suture. The tensor fascia was then repaired using a running locking 0 Vicryl followed by 2 0 Vicryl in the subcutaneous layer followed by a running 3 0 strata fixed in subcuticular layer followed by Dermabond on the skin and Aquacel dressing. Complications: none Post-operative Condition: stable Disposition: PACU Plan for aftercare: WBAT LLE, ASA 81mg BID for 6 weeks, 24 hours post-op abx
--- NOTE | 2020-05-21 18:30 | SUR.PHASEI ---
Attempted to call report to inpatient nurse but nurse unable to take report at this time. Patient awake but drowsy and taking ice chips without difficulty.
[2020-05-21 19:22] LABS: Magnesium 1.9 mg/dL (1.6-2.3)
[2020-05-21] MEDS: LACTATED RINGERS 1,000 ML 125 ML IV (20:16)
[2020-05-21] MEDS: ASPIRIN EC 81 MG TABLET PO (21:11)
[2020-05-21] MEDS: DOCUSATE 100 MG CAPSULE PO (21:11)
[2020-05-21] MEDS: ACETAMINOPHEN 325 MG TABLET 975 MG PO (21:12)
[2020-05-21] MEDS: DULOXETINE 30 MG CAPSULE 60 MG PO (21:12)
[2020-05-21] MEDS: ALBUTEROL/IPRATROPIUM MDI 1 PUFF INH (21:16)
--- NOTE | 2020-05-21 23:55 | PC.NURSE ---
Evening Shift Note- [id number] returned to room via bed from PACu at 1840. Patient alert and oriented and able to make needs known to staff. No complaints of pain or discomfort Admit done, medcations reviewed, physical assessment and skin check done. Patient oriented to bed and bed controls, room, lights, phone, menu, and call soto/tv remote. aquacell dressing to left hip c/d/i. safety measures in place. call soto and phone within reach .will continue to monitor.
[2020-05-22] VITALS (15 sets, daily range): BP systolic 105–149; BP diastolic 54–90; PULSE 71–110; RESP 16–18; TEMP 36.2–37.1; O2SAT 87–98
[2020-05-22] MEDS: CEFAZOLIN 2 GM/100 ML FROZ.PIGGY IV ×2 (00:20→06:32)
[2020-05-22] MEDS: OXYCODONE IR 5 MG TABLET PO (02:07)
[2020-05-22 05:26] LABS: Hematocrit 33.6 % (41-53); Hemoglobin 11.1 g/dL (13.5-17.5)
--- NOTE | 2020-05-22 05:42 | PC.NURSE ---
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 Patient unable to void, despite standing with assistance of walker and using urinal. Bladder scan performed - 414 mL noted. Patient attempted to void on own again but unsuccessful. Straight cath performed x1 per physician orders. 475 of dark, yellow urine returned. Patient medicated with PRN Percolone at 0207. Patient with VSS throughout shift, but requiring 2L NC. Surgical site covered with Aquacel dressing, remains clean, dry, intact. Patient able to weightbear as tolerated and was able to stand with 1 assist and walker. Neurovascular CMS remains intact. Patient currently resting in bed, no distress noted.
--- NOTE | 2020-05-22 08:25 | P.PN_ITS ---
Subjective Subjective Date Patient Seen: 05/22/20 Time Patient Seen: 08:25 Interval history: Patient is POD#1 s/p anterior total hip following a femoral neck fracture with Dr. Johnson. Pain is well controlled with Oxycodone. He has mobilized in the room, pending PT. Tolerating a diet. Was straight cathed overnight, has not voided independently yet. No complaints. Exam Vital Signs (past 8 hours): - 05/22/20 04:59 Temperature 97.8 F Pulse Rate 89 Respiratory Rate 16 Blood Pressure 111/60 Pulse Oximetry 97 Oxygen Delivery Method Nasal Cannula Oxygen Flow Rate 2 Narrative Exam Narrative: 70 year old male resting in bed, alert in no acute distress. Aquacel dressing is CDI. Neurvasculary intact in distal extremity. Calves soft, nontender. Objective Labs Result Diagrams: 05/22/20 04:55 05/21/20 12:05 Labs: Laboratory Results - last 24 hr 05/21/20 05/21/20 05/21/20 12:05 12:05 12:05 WBC 9.4 RBC 4.31 L Hgb 13.2 L Hct 40.2 L MCV 93.3 MCH 30.5 MCHC 32.7 RDW 14.1 Plt Count 245 Neut % (Auto) 83.9 H Lymph % (Auto) 9.6 L [place] % (Auto) 5.7 Eos % (Auto) 0.6 L Baso % (Auto) 0.2 Neut # (Auto) 7900 H Lymph # (Auto) 900 L [place] # (Auto) 500 Eos # (Auto) 100 Baso # (Auto) 0 Sodium 139 Potassium 4.7 Chloride 104 Carbon Dioxide 32 BUN 25 H Creatinine 0.87 Estimated GFR > 60.0 BUN/Creatinine Ratio 28.7 H Glucose 105 Calcium 9.2 Magnesium Total Bilirubin 0.5 AST 32 ALT 21 Alkaline Phosphatase 71 Troponin I < 0.012 Total Protein 7.2 Albumin 4.1 Globulin 3.1 Albumin/Globulin Ratio 1.3 COVID-19 PCR Blood Type O Positive Antibody Screen Negative 05/21/20 05/21/20 05/22/20 12:05 12:30 04:55 WBC RBC Hgb 11.1 L Hct 33.6 L MCV MCH MCHC RDW Plt Count Neut % (Auto) Lymph % (Auto) [place] % (Auto) Eos % (Auto) Baso % (Auto) Neut # (Auto) Lymph # (Auto) [place] # (Auto) Eos # (Auto) Baso # (Auto) Sodium Potassium Chloride Carbon Dioxide BUN Creatinine Estimated GFR BUN/Creatinine Ratio Glucose Calcium Magnesium 1.9 Total Bilirubin AST ALT Alkaline Phosphatase Troponin I Total Protein Albumin Globulin Albumin/Globulin Ratio COVID-19 PCR Negative Blood Type Antibody Screen Assessment & Plan Assessment & Plan narrative: Patient doing well postop. ASA 81mg BID for DVT prophylaxis. Work with PT, WBAT. Will continue to monitor urnary retention. If he is able to void independently likely discharge to home later today.
[2020-05-22] MEDS: ALBUTEROL/IPRATROPIUM MDI 1 PUFF INH ×4 (09:06→20:00)
--- NOTE | 2020-05-22 09:10 | OT.IP.EVAL ---
Current Diagnoses Pathological fracture, left femur, initial encounter for fracture (05/21/20) Surgery Performed Operation Date: 05/21/20 15:15 Actual Procedures p Total Hip Arthroplasty/Anterior Approach(Left) - Jem Johnson MD Past Medical History (Last Reviewed 05/22/20 @ 08:01 by Jocelyn Romero DO) Chronic obstructive pulmonary disease (06/13/16) Congestive heart failure (Acute) Malignant neoplasm of prostate (07/29/16) Mixed hyperlipidemia (06/13/16) Osteoporosis (06/13/16) Surgical History (Last Reviewed 05/22/20 @ 08:01 by Jocelyn Romero DO) History of carpal tunnel repair History of hip replacement Status post appendectomy Status post knee surgery Status post knee surgery Occupational Therapy Inpatient Evaluation/Re-Eval M1 PT/OT-IP Prior Functional Status Start: 05/22/20 11:40 Freq: NEEDED Status: Active Protocol: Document 05/22/20 11:40 CGR (Rec: 05/22/20 12:05 CGR [email or web address]) Medical Review Prior Functional Status Medical History Reviewed Yes Communication Pt is an effective verbal communicator. Mobility and Gait Pt was IND in all functional mobility without AD Activities of Daily Living and IADL's Pt was IND in all ADLs without AD Social History Household Members spouse Living Arrangements House Number of Floors (Floors) Two Floors Number of Stairs To Enter/Railing? no stairs to enter and 13 steps to the second floor with R railing assending Home Environment High Toilet,Walk in Shower Home Equipment Four Wheel Walker,Shower Seat without Backrest,Hand Held Shower,Convention Services Manager,Sock Aid Employment Status Retired Additional Social History Comment Pt lives with his on [place]. Pt is very active and likes working on projects. 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 M2 OT-IP Current Condition Start: 05/22/20 11:40 Freq: Status: Active Protocol: Document 05/22/20 11:40 CGR (Rec: 05/22/20 12:05 CGR [email or web address]) Occupational Therapy Current Condition Current Condition Evaluation Date 05/22/20 Treatment Diagnosis Syncope with fall and L hip fx s/p L anterior MIRLANDE 05/21 Diagnosis Onset Date 05/21/20 Post Operative Precautions Anterior Hip Precautions No Hip Extension,No Hip External Rotation Weight Bearing Status Weight Bearing Status Weight Bear as Tolerated M3 OT- IP Subjective and Pain Start: 05/22/20 11:40 Freq: Status: Active Protocol: Document 05/22/20 11:40 CGR (Rec: 05/22/20 12:05 CGR [email or web address]) OT- Subjective Occupational Therapy Visit Type Type Initial Evaluation Visit Start Time 08:15 Visit Stop Time 09:10 Total Visit Minutes 55 Notes Limited mobility d/t fluctuating BP with diaphoresis. Orthostatics performed: Time BP HR Supine 0856 138/78 94 Sitting 0857 132/79 95 Stand 0859 91/63 105 Stand 0900 134/77 90 Stand 0902 129/80 121 Occupational Therapy Visit Comments Patient Comments I feel woozy but not dizzy OT Pain Assessment Pain When Pain Assessed During Mobility Pain Present Pain Present Denied Pain M4 OT- IP ADL's Start: 05/22/20 11:40 Freq: Status: Active Protocol: Document 05/22/20 11:40 CGR (Rec: 05/22/20 12:05 CGR [email or web address]) OT WVI-Kozj-Ixpmlvy General Evaluation Self-Feeding Ability Independent Comments OT Self-Feeding Comments Pt finishing breakfast when OT entered OT ADL-Grooming General Evaluation Grooming Ability Standby Assistance Areas Needing Assistance Retrieving/Set-up of Grooming Items Comments OT Grooming Comments seated in chair d/t BP and diaphoresis OT ADL-Oral Care General Eval Oral Care Ability Standby Assistance Areas of Assistance Brushing Teeth Comments Oral Care Comments seated in chair d/t BP and diaphoresis OT ADL-Dressing Comments OT Dressing Comments Not performed but pt states that he remembers how to use the pure culture operator and sock aide for dressing and has that equipment at home from his last sx. OT ADL-Toileting General Evaluation Toileting Ability Independent Devices Toileting Assistive Devices Urinal Comments OT Toileting Comments Pt attempted to use the urinal seated in chair but was unable to void. OT ADL-Bathing Comments OT Bathing Comments not performed d/t BP and diaphoresis M5 OT- IP IADL's Start: 05/22/20 11:40 Freq: Status: Active Protocol: Document 05/22/20 11:40 CGR (Rec: 05/22/20 12:05 CGR [email or web address]) OT-Instrumental Activities of Daily Living Deficits IADL Deficits Identified No Deficits Home Safety Awareness Awareness of Need for Assistance at Home Good Awareness Ability to Problem Solve Emergency Able to Problem Solve Situations Medication Management Medication Management No Deficits Identified Money Management Money Management No Deficits Identified Meal Preparation Meal Preparation No Deficits Identified Neuropsychiatrist Neuropsychiatrist No Deficits Identified Driving Driving Caregiver Provides Assist M6 OT- IP Functional Cognition Start: 05/22/20 11:40 Freq: Status: Active Protocol: Document 05/22/20 11:40 CGR (Rec: 05/22/20 12:05 CGR [email or web address]) Cognitive Factors Limiting Selfcare Function Cognitive Ability Level of Alertness Alert Patient Orientation Name,Age,Birthday,Month,Date, Year,Day of Week,Place, Situation Attention Span Ability Capable of Focused Attention, Capable of Sustained Attention Ability to Follow Commands Able to Follow Multi-Step Commands Memory Description No Deficits Noted Safety Awareness No Deficits Noted Problem Solving Ability No deficits Noted OT- Vision and Hearing OT- Hearing Assessment OT- Hearing Assessment WFL OT- Vision Assessment Visual Acuity Glasses All The Time Visual Attentiveness WFL Occular Pursuits WFL Visual Convergence WFL M7 OT- IP Mobility and Balance Start: 05/22/20 11:40 Freq: Status: Active Protocol: Document 05/22/20 11:40 CGR (Rec: 05/22/20 12:05 CGR [email or web address]) OT- Bed Mobility Assessment Supine to Sit Supine to Sit Assist Independent Scooting Scooting to Edge of Bed Independent OT-Transfer Assessment Sit to and From Stand Sit to and from Stand Standby Assistance Transfers Transfer Ability Contact Guard Assistance Technique Transfer Destination Bed,Chair Transfer Technique Stand Step Pivot Devices Transfer Assistive Devices Gait Belt,Front Wheeled Walker Comments Mobility Comments CGA d/t BP and diaphoresis. OT- Gait Assessment Comments Gait Ability Comments Not performed d/t BP and diaphoresis OT- Balance Assessment Sitting Balance and Reactions Static Sitting Balance Ability Normal Dynamic Sitting Balance Ability Good M8 OT- IP Objective Assessments Start: 05/22/20 11:40 Freq: Status: Active Protocol: Document 05/22/20 11:40 CGR (Rec: 05/22/20 12:05 CGR [email or web address]) OT Gross Range of Motion Upper Extremity Range of Motion Assessment Within Functional Limits OT Strength Upper Extremity Strength Assessment Within Functional Limits OT- Coordination Assessment Upper Extremity Finger to Nose Test Within Functional Limits Finger Tapping Test Within Functional Limits OT-Muscle Tone Assessment Muscle Tone WNL Yes OT Sensation Assessment Edema Edema Absent M9 OT- IP Assessment and Plan Start: 05/22/20 11:40 Freq: Status: Active Protocol: Document 05/22/20 11:40 CGR (Rec: 05/22/20 12:05 CGR [email or web address]) OT Summary Assessment and Plan Potential Rehabilitation Potential Excellent Analytic Complexity at Evaluation Low Summary OT Impairments Functional Mobility,Dressing, Toileting,Bathing,Toilet Transfers,Shower Transfers, Activity Tolerance Progress Towards Goals Progressing Toward Goals Assessment Summary Pt presents as a low complexity evaluation s/p fall and subsequent 05/21 L anterior MIRLANDE. Pt presents as SBA to CGA for mobility on this date d/t fluctuating BP and diaphoresis. Pt will benefit from continued therapy services. Recommend d/c to home when medically ready with home health services. Goals Grooming Goal Independent Dressing Goal Independent Toileting Goal Independent Bathing Goal Independent Toilet Transfer Goal Independent Shower Transfer Goal Independent Days to Meet Goals 3 Frequency of Treatment Frequency Of Treatment Once a Day Treatment Plan OT Treatment Plan ADL Training,Functional Mobility,Patient/Family Education,Discharge Planning Other Treatment Recommendations and Next shower and ADLs standing. Treatment Focus Assess dressing. Discharge Recommendations OT Discharge Recommendations Home with Assistance Home Equipment Needs TBD, possible FWW needed. Transportation Needs at Discharge Private Vehicle
--- NOTE | 2020-05-22 09:19 | PC.NURSE ---
Addendum entered by Wei Ng R.N. 05/22/20 13:51: 500CC'S BOLUS COMPLETED. PATIENT FEELS URGE TO VOID. STOOD PATIENT AT 1337 ASYMPTOMATIC W/ BP 127/76. HR 99. AMBULATED TO BR. PRIOR TO SITTING STARTED TO FEEL LIGHTHEADED BUT NO NAUSEA AND NO DIAPHORESIS. RECHECKED BP 109/77 HR 107 SITTING. AFTER SEVERAL MINUTES DIZZINESS SUBSIDED. DR. BARNES NOTIFIED OF SAME. ORDERED ANOTHER 500 CC'S BOLUS. PATIENT STATES HE HASN'T BEEN DRINKING MUCH LAST FEW DAYS AND WAS WORKING IN THE SUN. STATES ALSO LOST ABOUT 10 LBS IN THE LAST MONTH. DIETARY CONSULT ENTERED. Addendum entered by Wei Ng R.N. 05/22/20 10:44: bladder scan at 1035. 287cc's. patient wants to try drinking more water and re-attempt void. states has felt dehydrated and had the trots the last couple days. Original Note: PATIENT SYMPTOMATIC WITH ACTIVITY W/ PHYSICAL THERAPY. SUPINE 0856 138/78 HR 94. SIT 0857 132/79 HR 95, STAND 0859 91/63 HR 105 STAND 0900 134/77 HR 90. STAND 0902 129/80 HR 121. PATIENT BECAME EXTREMELY DIAPHORETIC THROUGHOUT HIS ENTIRE BODY INCLUDING LEGS VERY MOIST WITH SWEAT. HAD NAUSEA AND FELT WOOZY. NAUSEA RESOLVED W/ SITTING. DR. ALANIS NOTIFIED OF SYMPTOMS AND ORTHOSTATIC VS. WOULD LIKE THIS MARKETING INTELLIGENCE MANAGER TO WAIT TO GIVE ALL AM BP MEDS, AND RE-EVAL LATER THIS AM. PATIENT IS CURRENTLY SITTING UP IN RECLINER. HAS WHEEZES THROUGHOUT BUT DENIES SOB. STATES SATS RUN 90-93%. 1L/NC ON, R/T DESAT TO 80'S ON RA. USE OF I.S. W/ RT.
[2020-05-22] MEDS: ASPIRIN EC 81 MG TABLET PO ×2 (10:08→20:38)
[2020-05-22] MEDS: ACETAMINOPHEN 325 MG TABLET 975 MG PO ×2 (10:08→20:38)
[2020-05-22] MEDS: CALCIUM CARB/VIT D3 500/200 TABLET 1 EACH PO ×2 (10:08→18:12)
[2020-05-22] MEDS: buPROPion XL 150 MG TAB PO ×2 (10:10→20:38)
--- NOTE | 2020-05-22 11:08 | PT.IIE ---
Current Diagnoses Pathological fracture, left femur, initial encounter for fracture (05/21/20) Surgery Performed Operation Date: 05/21/20 15:15 Actual Procedures p Total Hip Arthroplasty/Anterior Approach(Left) - Jem Johnson MD Surgical History (Last Reviewed 05/22/20 @ 08:01 by Jocelyn Romero DO) History of carpal tunnel repair History of hip replacement Status post appendectomy Status post knee surgery Status post knee surgery Medical History (Last Reviewed 05/22/20 @ 08:01 by Jocelyn Romero DO) Chronic obstructive pulmonary disease (06/13/16) Congestive heart failure (Acute) Malignant neoplasm of prostate (07/29/16) Mixed hyperlipidemia (06/13/16) Osteoporosis (06/13/16) Physical Therapy Inpatient Evaluation/Re-Eval M1 PT/OT-IP Prior Functional Status Start: 05/22/20 11:40 Freq: NEEDED Status: Active Protocol: Document 05/22/20 11:40 CGR (Rec: 05/22/20 12:05 CGR [email or web address]) Medical Review Prior Functional Status Medical History Reviewed Yes Communication Pt is an effective verbal communicator. Mobility and Gait Pt was IND in all functional mobility without AD Activities of Daily Living and IADL's Pt was IND in all ADLs without AD Social History Household Members spouse Living Arrangements House Number of Floors (Floors) Two Floors Number of Stairs To Enter/Railing? no stairs to enter and 13 steps to the second floor with R railing assending Home Environment High Toilet,Walk in Shower Home Equipment Four Wheel Walker,Shower Seat without Backrest,Hand Held Shower,Invoicing Machine Operator,Sock Aid Employment Status Retired Additional Social History Comment Pt lives with his on [place]. Pt is very active and likes working on projects. 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 M1 PT/OT-IP Prior Functional Status Start: 05/22/20 12:54 Freq: NEEDED Status: Active Protocol: Document 05/22/20 11:08 AB (Rec: 05/22/20 13:10 AB [email or web address]) Medical Review Prior Functional Status Medical History Reviewed Yes Communication able to make needs known Mobility and Gait stated that he is independent with all mobilities and ambulation without AD Activities of Daily Living and IADL's independent Social History Household Members spouse Living Arrangements House Number of Floors (Floors) Two Floors Number of Stairs To Enter/Railing? has no steps to enter and plans to stay on main level of the house at this time; but has 13 steps with R rail ascending to 2nd level bedroom Home Environment High Toilet,Walk in Shower Home Equipment Four Wheel Walker,Straight Cane,Shower Seat without Backrest,Hand Held Shower, Invoicing Machine Operator,Sock Aid Employment Status Retired Additional Social History Comment Pt lives with his on [place]. pt stated that he can borrow a FWW for home use M2 PT-IP Current Condition Start: 05/22/20 12:54 Freq: NEEDED Status: Active Protocol: Document 05/22/20 11:08 AB (Rec: 05/22/20 13:10 AB [email or web address]) Physical Therapy Current Condition Current Condition Evaluation Date 05/22/20 Treatment Diagnosis s/p L MIRLANDE anterior approach; difficulty in walking Onset Date 05/21/20 Precautions Anterior Hip Precautions No Hip Extension,No Hip External Rotation Weight Bearing Status Weight Bearing Status Weight Bear as Tolerated Allowed Weight Bearing Amount (enter % WBAT LLE or #) (%) M3 PT-IP Subjective Start: 05/22/20 12:54 Freq: NEEDED Status: Active Protocol: Document 05/22/20 11:08 AB (Rec: 05/22/20 13:10 AB [email or web address]) Subjective Physical Therapy Visit Type Type Initial Evaluation Visit Start Time 11:08 Visit Stop Time 11:54 Total Visit Minutes 43 Number of CAFETERIA COOK Visits 0 Physical Therapy Visit Comments Patient Comments pt is agreeable to do PT Therapy Pain Assessment Pain When Pain Assessed At Rest Pain Present Pain Present Pain Reported Location Left Hip Intensity 2 Scale Used Numeric (0 - 10) Pain Management Techniques Distraction,Modification of Treatment,Re-positioning, Timing of Activity with Medications M4 PT-IP Mobility and Gait Start: 05/22/20 12:54 Freq: NEEDED Status: Active Protocol: Document 05/22/20 11:08 AB (Rec: 05/22/20 13:10 AB [email or web address]) PT-Bed Mobility Assessment Supine to Sit Supine to Sit Standby Assistance,1 Person Assistance Scooting Scooting to Edge of Bed Standby Assistance PT-Transfer Assessment Sit to and From Stand Sit to and from Stand Minimal Assistance,1 Person Assistance,Use of Upper Extremities Equipment Transfer Assistive Device Gait Belt,Front Wheeled Walker Orthotic/Prosthetic Devices or Brace: No Transfers Transfer Destination Chair Transfer Technique ambulated using FWW Transfer Ability Level of Assist Minimal Assistance,1 Person Assistance,Use of Upper Extremities Comments Mobility Comments BP monitored. supine BP: 126/ 78. O2 sat at room air 93 to 96% pt completed supine to sit SBA. BP in sittin/ 80. slight c/o dizziness. O2 sat decreased to ~ 87%; put O2 on pt. BP checked again after ~ 2-3 min: 138/88. dizziness decrease but still c /o some dizziness. completed sit to stand min A and cues. pt was able to stay standing using FWW for support CGA. BP in standin/76. continues to c/o lightheadedneass, dizziness but stated that he feels ok. BP checked again in standing after ~ 2 min: 111/72. pt ambulated towards the chair ~ 12 ft min A and cues. pt with really slow sixto. positioned pt on chair. BP checked: 126/85. O2 sat 96% pt c/o nausea and cold sweats but dissipated after ~ 3 min of rest. call light and table placed within reach. Gait Assessment Gait Gait Assistance Required: Minimum Assistance Distance (Feet) 12 Able to Maintain Weight Bearing Status Yes During Gait Assistive Devices Assistive Device Gait Belt,Front Wheeled Walker Orthotic/Prosthetic Devices or Brace: No Gait Deviations General Gait Pattern Antalgic,Decreased Stride Length,Decreased Feet Clearance,Step-to Gait Factors Limiting Gait Function Factors Limiting Gait Function Decreased Activity Tolerance, Decreased Sensation,Decreased Strength,Difficulty Following Directions,Limited Range of Motion,Pain,Poor Balance,Poor Safety Awareness Comments Gait Comments pls refer to mobility section for details PT-Balance Assessment Sitting Balance and Reactions Static Sitting Balance Ability Good Dynamic Sitting Balance Ability Good Standing Balance and Reactions Static Standing Balance Ability Fair Dynamic Standing Balance Ability Fair Device Used FWW M5 PT-IP Objective Assessments Start: 05/22/20 12:54 Freq: NEEDED Status: Active Protocol: Document 05/22/20 11:08 AB (Rec: 05/22/20 13:10 AB [email or web address]) Orientation Orientation/Cognition Level of Alertness Alert Orientation Name,Place,Situation Language Function Ability No Deficits Noted Safety Awareness Decreased Safety Awareness Memory Description Short Term Impaired Gross Range of Motion Lower Extremity ROM Assessment Within Functional Limits Strength Lower Extremity Strength Assessment Left Impaired Hip 3+/5 Knee 3+/5 Coordination Assessment Gross Coordination Gross Coordination WNL Sensation Assessment Sensation Gross Sensation WNL Muscle Tone Muscle Tone WNL Yes M6 PT-IP Treatment Start: 05/22/20 12:54 Freq: NEEDED Status: Active Protocol: Document 05/22/20 11:08 AB (Rec: 05/22/20 13:10 AB [email or web address]) Physical Therapy Treatment Education Education Provided Precautions,Weight Bearing Status,Post-Op Packet,Safety M7 PT-IP Assessment and Plan Start: 05/22/20 12:54 Freq: NEEDED Status: Active Protocol: Document 05/22/20 11:08 AB (Rec: 05/22/20 13:10 AB [email or web address]) PT Summary Assessment and Plan Potential Rehabilitation Potential Good Status of Condition at Evaluation Evolving Summary Impairments Pain,ROM,Strength,Balance, Coordination,Sensation,Tone, Cognition,Bed Mobility, Transfers,Gait,Activity Tolerance Assessment Summary pt requiring min A with transfers and ambulation using FWW but unable to tolerate much activity with c/o nausea/ dizziness. BP decrease from sitting to standing. d/c plan depending on progress. Currently, main limiting factor is dizziness/ lightheadedness affecting tolerance and mobility. will continue to assess progress but at this time will require 24/7 assist. will conduct caregiver training when appropriate. Goals Bed Mobility Goal Independent Transfer Goal Standby Assistance,Front Wheeled Walker Gait Goal Standby Assistance,Front Wheel Walker Gait Distance 200 Days to Meet Goals 5 Frequency of Treatment Frequency Of Treatment Twice a Day Treatment Plan Physical Therapy Treatment Plan Bed Mobility Training,Transfer Training,Gait Training, Therapeutic Exercise,Balance Retraining,Post Op Education, Discharge Planning,Hot or Cold Pack,Neuromuscular Re-ed, Coordination Retraining,Manual Therapy Other Recommendations and Next Treatment ambulation Focus Recommendations To Nursing Amount of Assist Needed 1 Person Assist Discharge Recommendations PT Discharge Recommendations Home with 24/7 Assist,Home Health,SNF Rehab Transportation Needs at Discharge Private Vehicle,Wheelchair/ Cabulance
[2020-05-22] MEDS: SODIUM CHLORIDE 0.9% 500 ML IV (12:27)
--- NOTE | 2020-05-22 14:20 | PT.IPTN ---
Current Diagnoses Pathological fracture, left femur, initial encounter for fracture (05/21/20) Surgery Performed Operation Date: 05/21/20 15:15 Actual Procedures p Total Hip Arthroplasty/Anterior Approach(Left) - Jem Johnson MD Physical Therapy Treatment Note M2 PT-IP Current Condition Start: 05/22/20 12:54 Freq: NEEDED Status: Active Protocol: Document 05/22/20 11:08 AB (Rec: 05/22/20 13:10 AB [email or web address]) Physical Therapy Current Condition Current Condition Evaluation Date 05/22/20 Treatment Diagnosis s/p L MIRLANDE anterior approach; difficulty in walking Onset Date 05/21/20 Precautions Anterior Hip Precautions No Hip Extension,No Hip External Rotation Weight Bearing Status Weight Bearing Status Weight Bear as Tolerated Allowed Weight Bearing Amount (enter % WBAT LLE or #) (%) M3 PT-IP Subjective Start: 05/22/20 12:54 Freq: NEEDED Status: Active Protocol: Document 05/22/20 14:20 AB (Rec: 05/22/20 15:07 AB [email or web address]) Subjective Physical Therapy Visit Type Type Treatment Note Visit Start Time 14:20 Visit Stop Time 14:52 Total Visit Minutes 32 Number of CORPORATE EXECUTIVE CHEF Visits 0 Physical Therapy Visit Comments Patient Comments pt is agreeable to do PT Therapy Pain Assessment Pain When Pain Assessed At Rest Pain Present Pain Present Pain Reported Location Left Hip Intensity 3 Scale Used Numeric (0 - 10) Pain Management Techniques Distraction,Re-positioning, Timing of Activity with Medications M4 PT-IP Mobility and Gait Start: 05/22/20 12:54 Freq: NEEDED Status: Active Protocol: Document 05/22/20 14:20 AB (Rec: 05/22/20 15:07 AB [email or web address]) PT-Bed Mobility Assessment Supine to Sit Supine to Sit Standby Assistance PT-Transfer Assessment Sit to and From Stand Sit to and from Stand Minimal Assistance,1 Person Assistance,Use of Upper Extremities Equipment Transfer Assistive Device Gait Belt,Front Wheeled Walker Comments Mobility Comments BP monitored. BP supine: 111/ 79. O2 sat varies from 93-97% throughout tx session but has to cue pt to take deep breaths. reviewe hip precautions. completed supine to sit SBA. BP : initial sittin/79. pt c/o slight dizziness but stated that he is fine. sat on EOB. BP checked again after 2 min: 147/75. pt stated that he still feels dizzy but better after taking deep breaths. BP checked again: 140/83. completed sit to stand min A. pt was able to maintain standing using FWW for suppor CGA. BP: 95/80. pt was able to tolerate standing for 2 more minutes and BP checked again: 122/82. pt ambulated in room using FWW ~ 30 ft CGA. pt able to elevate BLE better compared to this morning. pt stated that he felt dizziness turning the corner but now is feeling fine . sat on EOB. BP checked: 139 /77. pt want to sit up on chair and ambulated to chair using FWW ~ 12 ft CGA to min A . BP after ambulation: 159/83 . positioned pt on chair. call light and table placed within reach. nurse aware of BP. Gait Assessment Gait Gait Assistance Required: Contact Guard Assist,Minimum Assistance Distance (Feet) 30 Able to Maintain Weight Bearing Status Yes During Gait Assistive Devices Assistive Device Gait Belt,Front Wheeled Walker Orthotic/Prosthetic Devices or Brace: No Gait Deviations General Gait Pattern Decreased Stride Length, Decreased Feet Clearance Factors Limiting Gait Function Factors Limiting Gait Function Decreased Activity Tolerance, Decreased Strength,Pain,Poor Balance,Respiratory Distress Comments Gait Comments pls refer to mobility section for details M5 PT-IP Objective Assessments Start: 05/22/20 12:54 Freq: NEEDED Status: Active Protocol: Document 05/22/20 11:08 AB (Rec: 05/22/20 13:10 AB [email or web address]) Orientation Orientation/Cognition Level of Alertness Alert Orientation Name,Place,Situation Language Function Ability No Deficits Noted Safety Awareness Decreased Safety Awareness Memory Description Short Term Impaired Gross Range of Motion Lower Extremity ROM Assessment Within Functional Limits Strength Lower Extremity Strength Assessment Left Impaired Hip 3+/5 Knee 3+/5 Coordination Assessment Gross Coordination Gross Coordination WNL Sensation Assessment Sensation Gross Sensation WNL Muscle Tone Muscle Tone WNL Yes M6 PT-IP Treatment Start: 05/22/20 12:54 Freq: NEEDED Status: Active Protocol: Document 05/22/20 14:20 AB (Rec: 05/22/20 15:07 AB [email or web address]) Physical Therapy Treatment Education Education Provided Precautions,Safety M7 PT-IP Assessment and Plan Start: 05/22/20 12:54 Freq: NEEDED Status: Active Protocol: Document 05/22/20 14:20 AB (Rec: 05/22/20 15:07 AB [id number]) PT Summary Assessment and Plan Potential Rehabilitation Potential Good Summary Impairments Pain,ROM,Strength,Balance, Coordination,Sensation,Tone, Cognition,Bed Mobility, Transfers,Gait,Activity Tolerance Progress Towards Goals Slow Progress due to Medical Issues,Slow Progress due to Activity Tolerance Assessment Summary pt improving slowly but continues to have decrease activity tolerance with c/o dizziness. will continue to assess progress. will conduct caregiver training when appropriate. pt has to set up his outpt PT. Goals Bed Mobility Goal Independent Transfer Goal Standby Assistance,Front Wheeled Walker Gait Goal Standby Assistance,Front Wheel Walker Gait Distance 200 Days to Meet Goals 5 Frequency of Treatment Frequency Of Treatment Twice a Day Treatment Plan Physical Therapy Treatment Plan Bed Mobility Training,Transfer Training,Gait Training, Therapeutic Exercise,Balance Retraining,Post Op Education, Discharge Planning,Hot or Cold Pack,Neuromuscular Re-ed, Coordination Retraining,Manual Therapy Other Recommendations and Next Treatment ambulation Focus Recommendations To Nursing Amount of Assist Needed 1 Person Assist Discharge Recommendations PT Discharge Recommendations Home with 13/03 Assist,Home Health,SNF Rehab Transportation Needs at Discharge Private Vehicle,Wheelchair/ Cabulance
[2020-05-22] MEDS: SODIUM CHLORIDE 0.9% 500 ML 1000 ML IV (14:42)
--- NOTE | 2020-05-22 15:41 | CM.IDA ---
Initial DCP Assessment Note Pt is a 70 yo male, resident of [place]. patient now POD#1 from hip surgery surgery w/ Dr Johnson, fx sustained after syncopal episode and GLF PCP: Kendrick Pace Payer: MCR/CLAUDIAP Reviewed chart, pt discussed in multidisciplinary rounds this morning. Met w/patient to introduce role. Patient is very active and indp at baseline and plans to return home w/spouse to assist upon DC. According to therapy notes, patient has had slow progress w/PT today d/t low activity tolerance, will continue to assess progress and needs. No needs expected from DC planning team although will remain available and follow closely in case this changes before DC. 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 No History Provided By Patient,Significant Other Prior Living Arrangements House Household Members spouse Type of transportation used prior to Drives own vehicle admit Independent with ADL's Yes Is patient alert and oriented? Yes Barriers to Discharge No Discharge Plan Home Transportation Arrangement family Referrals Initiated None needed Additional Comment At this time
--- NOTE | 2020-05-22 16:37 | DIET.PN ---
Dietary Progress Note Assessment: 70y M admitted for GLF after vasovagal incident c hip fracture POD #1 for total hip referred to nutrition for recent perceived weight loss of 10-15#. Pt reports UBW 185# which is where he is now. There is some confusion as ER weight recorded as 71kg. Pt concerned about actual current body weight and his spouse says he looks thinner than usual. Nursing to perform accurate weight when pt returns to bed. Pt has hx of prostate cancer c radiation to pelvis. Had planned hip replacement several years ago at [facility]. Pt has CHF and COPD so avoids salt, does not eat smoked fish, does not like salty foods. 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 He is very active and has a difficult time sitting down for meals and to drink water. Pt is a picky eater and feels his appetite has been low for several weeks. Pt remarks to his spouse that he has been feeling off for past 10d. Usual Day: wakes 7am B(9am): cheerios c whole milk and coffee L: serbian muffin c pb and homemade jam D: beef Pt not a big vegetable eater or water drinker. Pt does not like nuts, avocado, or coconut. HT: 185.4cm WT: 83kg UBW: 83kg BMI: 24.1 Labs: BUN 25 H on admission Nutrition Diagnosis: 1. chronic inadequate fluid intake r/t food and nutrition related knowledge deficit aeb pt reports not taking time to drink fluids despite known vasovagal episodes, pt was clinically dehydrated upon admission to hospital (bun 25), pt suffered hip fracture as result of vasovagal episode. 2. inadequate protein calorie intake r/t diminished appetite aeb pt reports recent weight loss and that food doesn't seem appealing, pt has difficulty stopping activity to eat, pt is picky eater. Interventions: 1. Educated pt on importance of hydration, half should be pure water but other half can be soup, popcicle, watermelon, etc. Encouraged pt to bring water bottle out when doing work away from home. 2. Discussed methods for weight maintenance which fit pts current health status. Focusing on PRO and healthy fats to support CHF, COPD, pt likes peanut butter. Pts has packet for post-surgical bone support nutrition c recipes, encouraged pt to eat these items to regain his mobility and vitality. Diet Order: EER: calcium and vitamin d as well as 85g PRO (1g/kg per post surgical) to support bone healing
--- NOTE | 2020-05-22 16:55 | P.PN_ITS ---
Subjective Subjective Date Patient Seen: 05/22/20 Interval history: Josr Alaniz is a 70-year-old male with a past medical history significant for COPD, congestive heart failure, and depression who presented to the ED after with left hip pain and inability to ambulate after vasovagal syncope. The patient is resting in bedside chair comfortably. He had an episode of orthostasis this morning in which he became profoundly diaphoretic with mild lightheadedness. He received 1 L of normal saline with significant improvement in orthostasis. He reports his pain is well controlled with acetaminophen. He does endorse some mild aching of his lower thigh. He has no complaints and den ies denies headache, cough, shortness of breath, chest pain, abdominal pain, nausea, vomiting, fever, chills, dysuria, diarrhea or constipation. He has not been able to void spontaneously and continuing to monitor for urinary retention and will perform straight catheterization or place Rosenbaum catheter if needed. He is up ambulating with assistance. Exam Vital Signs (past 8 hours): - 05/22/20 09:25 05/22/20 09:32 05/22/20 12:00 Temperature Pulse Rate 86 92 H Respiratory Rate 18 18 Blood Pressure 126/78 Pulse Oximetry 87 L 87 L 93 05/22/20 12:21 05/22/20 15:24 05/22/20 16:43 Temperature 98.3 F Pulse Rate 71 86 76 Respiratory Rate 16 18 16 Blood Pressure 124/77 Pulse Oximetry 95 95 96 Oxygen Delivery Method Room Air Oxygen Flow Rate 0 Narrative Exam Narrative: General: Older male resting in bed and in no acute distress, appears older than stated age and chronically ill, appropriately interactive. HEENT: Normocephalic, atraumatic. External ears without defect. Pupils equal, round, and reactive to light. Anicteric sclerae, moist conjunctivae, and no lid lag. Oropharynx free of erythema and cobble stoning with moist mucosa. Neck: Supple with full range of motion. No jugular venous distension. No lymphadenopathy or thyromegaly. Cardiovascular: Regular rate and rhythm without murmurs, rubs, or gallops appreciated. Pulmonary: Clear to auscultation bilaterally without crackles, wheezes, or rhonchi. Normal respiratory effort with no use of accessory muscles. Abdomen: Soft, bowel sounds present, nontender, nondistended. No hepatosplenomegaly or masses appreciated. Extremities: No clubbing, cyanosis, or edema. Left hip with dressing in place C/D/I without surrounding erythema or edema. Skin: Normal temperature, turgor, and texture; no rash, ulcers, or subcutaneous nodules appreciated. Neurological: Cranial nerves grossly intact. Psychiatric: Normal mood and affect. Alert and oriented to person, place, and time. Objective Labs Result Diagrams: 05/22/20 04:55 05/21/20 12:05 Labs: Laboratory Results - last 24 hr 05/21/20 05/22/20 12:05 04:55 Hgb 11.1 L Hct 33.6 L Magnesium 1.9 Assessment & Plan Assessment & Plan narrative: Josr Alaniz is a 70-year-old male with a past medical history significant for COPD, congestive heart failure, and depression who presented to the ED after with left hip pain and inability to ambulate after vasovagal syncope. 1. Acute pathological left hip fracture, present on admission. Active. -Patient had a vasovagal syncopal episode in which he was bending over and stood up and began ambulating abruptly with lightheadedness and syncopal episode seconds later. No trauma to head. EKG, troponin, and electrolytes all unremarkable and likely represents vasovagal event from orthostatsis and rapid position changes. Patient fell on left hip and had instant left hip pain and inability to bear weight or ambulate. -Left hip x-ray demonstrated left femoral neck fracture. -Consulted orthopedic surgery, Dr. Johnson, who performed a left total hip arthroplasty. Continue postoperative management, pain control and DVT prophylaxis per Orthopedic surgery. Continue aspirin 81 mg twice daily for DVT prophylaxis. Continue acetaminophen 975 mg 3 times daily, oxycodone 5 mg every 3 hours for moderate to severe pain and hydromorphone 0.5-1 mg every 6 hours as needed for severe breakthrough pain. -Continue calcium and vitamin-D supplementation. Patient will need to be treated for osteoporosis as an outpatient per PCP or Orthopedic surgery. -Continue physical and occupational therapy evaluation treatment. 2. Acute blood loss anemia, present on admission. Stable. -Secondary to left hip fracture and left hip total arthroplasty. -Initial hemoglobin 13.2. Hemoglobin trended down now 11.1. -Continued to monitor for signs of bleeding and H&H daily. 3. Acute dehydration with orthostasis, present admission. Resolving. -Patient reports he has not been eating or drinking well and has been working out in the sun regularly. He is also on furosemide 30 mg daily at home. -Patient had positive orthostatic vital signs. Received 1 L of NS with improvement in orthostatic vital signs. Plan to continue normal saline at 50 mL/hr overnight. -Held home furosemide 30 mg daily, lisinopril 5 mg daily and metoprolol succinate 25 mg daily. 4. COPD emphysema type, chronic, present on admission. Stable. -Does not represent acute COPD exacerbation. -Chest x-ray did not demonstrate any acute cardiopulmonary process. -COVID 19 negative. -Continue home albuterol 1 puff every 6 hours as needed for shortness of breath or wheezing. -Continue incentive spirometry 10 times an hour every 1 hour while awake to help prevent postoperative pneumonia. 5. Congestive heart failure, unknown type, chronic, present on admission. Stable. -Unclear type of heart failure and will request records from PCP's office. Does not represent acute CHF exacerbation. -Chest x-ray did not demonstrate any acute cardiopulmonary process. -Held home furosemide 30 mg daily, lisinopril 5 mg daily and metoprolol succinate 25 mg daily. -Continue to monitor strict I&Os and daily weights. 6. Depression, chronic, present on admission. Stable. -Continue home duloxetine 60 mg daily and bupropion 150 mg twice daily. 7. History of prostate cancer status post radiation and presumably in remission. -Patient likely has BPH in setting of prostate cancer. -Patient has been unable to void spontaneously. Continue to monitor for urinary retention and perform straight catheterization or place Rosenbaum catheter if needed. -Ordered tamsulosin 0.4 mg daily. -Patient reports 15 lb unintentional weight loss over the last several and occasional night sweat. Consulted dietitian and we appreciate her time and recommendations. Code status: Full code, patient's spouse Isabel Alaniz is designated surrogate decision maker VTE prophylaxis: ASA, SCDs Disposition: Patient likely to discharge home tomorrow once rehydrated and orthostasis completely resolved.
[2020-05-22] MEDS: TAMSULOSIN 0.4 MG CAPSULE PO (18:27)
[2020-05-22] MEDS: SODIUM CHLORIDE 0.9% 1,000 ML 50 ML IV (18:27)
[2020-05-22] MEDS: DOCUSATE 100 MG CAPSULE PO (20:38)
[2020-05-22] MEDS: DULOXETINE 30 MG CAPSULE 60 MG PO (20:40)
[2020-05-23] VITALS (7 sets, daily range): BP systolic 80–161; BP diastolic 62–86; PULSE 92–129; RESP 16–18; TEMP 36.7–36.8; O2SAT 91–95
[2020-05-23] MEDS: OXYCODONE IR 5 MG TABLET PO (00:05)
--- NOTE | 2020-05-23 03:24 | PC.NURSE ---
Addendum entered by Bessie Webber R.N. 05/23/20 05:37: Patient with minimal sleep throughout the shift despite 6 mg Melatonin administered. Patient with tachycardia and PVCs on telemetry. Patient ambulating well, s/p left MIRLANDE. POD #2. Dressing remains C/D/I. Patient with perez cath in place, but states it is very uncomfortable. 1 PRN dose of Oxycodone administered for pain. Patient currently resting in bed. Remains on RA. Original Note: Spoke with PURA Mcginnis regarding patient's diaphoresis when going to the restroom, restlessness, and patient expressing he doesn't feel like he can settle down. I informed her that patient has not slept at all tonight and continues to have the urge of needing to void, despite bladder scan only showing 7mL in bladder. Orders received.
[2020-05-23] MEDS: MELATONIN 3 MG TABLET 6 MG PO (03:37)
[2020-05-23 05:14] LABS: Add Manual Diff / Slide Review NO; Basophils Absolute Auto 0 /uL (0-100); Basophils Percent Auto 0.2 % (0-2); Eosinophils Absolute Auto 100 /uL (0-450); Eosinophils Percent Auto 0.9 % (2-4); Hematocrit 31.4 % (41-53); Hemoglobin 10.4 g/dL (13.5-17.5); Lymphocytes Absolute Auto 1000 /uL (1100-4500); Lymphocytes Percent Auto 11.5 % (25-40); Mean Corpuscular HGB Conc 33.1 % (30-36); Mean Corpuscular Hemoglobin 30.7 PG (26-34); Mean Corpuscular Volume 92.9 fL (80-100); Monocytes Absolute Auto 1000 /uL (0-900); Monocytes Percent Auto 11.2 % (3-14); Neutrophils Absolute Auto 6800 /uL (1500-7000); Neutrophils Percent Auto 76.2 % (50-75); Platelet Count 174 X10^3/uL (150-400); Red Blood Cell Count 3.38 X10^6/uL (4.5-5.9); White Blood Cell Count 8.9 X10^3/uL (4.5-11.0)
[2020-05-23 05:28] LABS: BUN Creatinine Ratio 25.6 (6-22); Blood Urea Nitrogen 20 mg/dL (9-20); Calcium 9.1 mg/dL (8.4-10.2); Carbon Dioxide 31 mmol/L (22-32); Chloride 105 mmol/L (98-107); Estimated Glomerular Filt Rate > 60.0 mL/min (>60); Glucose 111 mg/dL (80-110); HEMOLYSIS < 15 (0-50); Magnesium 1.7 mg/dL (1.6-2.3); Sodium 137 mmol/L (137-145)
[2020-05-23 05:57] LABS: TSH w/ Reflex to FT4 1.79 uIU/mL (0.47-4.68)
[2020-05-23] MEDS: ASPIRIN EC 81 MG TABLET PO (08:06)
[2020-05-23] MEDS: TAMSULOSIN 0.4 MG CAPSULE PO (08:06)
[2020-05-23] MEDS: lisinopriL 5 MG TABLET PO (08:06)
[2020-05-23] MEDS: buPROPion XL 150 MG TAB PO (08:06)
[2020-05-23] MEDS: CALCIUM CARB/VIT D3 500/200 TABLET 1 EACH PO (08:06)
[2020-05-23] MEDS: METOPROLOL ER 25 MG TABLET PO (08:06)
[2020-05-23] MEDS: ACETAMINOPHEN 325 MG TABLET 975 MG PO (08:07)
[2020-05-23] MEDS: DOCUSATE 100 MG CAPSULE PO (08:07)
[2020-05-23] MEDS: ALBUTEROL/IPRATROPIUM MDI 1 PUFF INH (09:21)
--- NOTE | 2020-05-23 09:23 | OT.IP.TRT ---
Current Diagnoses Pathological fracture, left femur, initial encounter for fracture (05/21/20) Surgery Performed Operation Date: 05/21/20 15:15 Actual Procedures p Total Hip Arthroplasty/Anterior Approach(Left) - Jem Johnson MD Occupational Therapy Treatment Note M2 OT-IP Current Condition Start: 05/22/20 11:40 Freq: Status: Active Protocol: Document 05/22/20 11:40 CGR (Rec: 05/22/20 12:05 CGR [email or web address]) Occupational Therapy Current Condition Current Condition Evaluation Date 05/22/20 Treatment Diagnosis Syncope with fall and L hip fx s/p L anterior MIRLANDE 05/21 Diagnosis Onset Date 05/21/20 Post Operative Precautions Anterior Hip Precautions No Hip Extension,No Hip External Rotation Weight Bearing Status Weight Bearing Status Weight Bear as Tolerated M3 OT- IP Subjective and Pain Start: 05/22/20 11:40 Freq: Status: Active Protocol: Document 05/23/20 10:55 CGR (Rec: 05/23/20 11:08 CGR [email or web address]) OT- Subjective Occupational Therapy Visit Type Type Progress Note Visit Start Time 09:06 Visit Stop Time 09:23 Total Visit Minutes 17 Notes Pt states pain to the perez and is impulsive with his mobility on this date. Occupational Therapy Visit Comments Patient Comments I don't know if getting into the shower is a good idea. OT Pain Assessment Pain When Pain Assessed During Mobility Pain Present Pain Present Pain Reported Location Abdomen Scale Used did not rate but states pain from perez Description Pressure Pain Behaviors Facial Grimacing,Holding Area, Restlessness,Wincing Management Techniques Distraction,Modification of Treatment,Re-positioning M4 OT- IP ADL's Start: 05/22/20 11:40 Freq: Status: Active Protocol: Document 05/23/20 10:55 CGR (Rec: 05/23/20 11:08 CGR [email or web address]) OT [id number] General Evaluation Self-Feeding Ability Independent Comments OT Self-Feeding Comments breakfast, provided with cheerios per pt request OT ADL-Grooming General Evaluation Grooming Ability Standby Assistance Areas Needing Assistance Face Washing Comments OT Grooming Comments set up with cold rag OT ADL-Oral Care Comments Oral Care Comments not performed OT ADL-Dressing Comments OT Dressing Comments not performed OT ADL-Toileting Comments OT Toileting Comments Pt with perez at this time OT ADL-Bathing Comments OT Bathing Comments Pt declined at this time stating I am not sure a shower is a good idea right now. M5 OT- IP IADL's Start: 05/22/20 11:40 Freq: Status: Active Protocol: Document 05/22/20 11:40 CGR (Rec: 05/22/20 12:05 CGR [email or web address]) OT-Instrumental Activities of Daily Living Deficits IADL Deficits Identified No Deficits Home Safety Awareness Awareness of Need for Assistance at Home Good Awareness Ability to Problem Solve Emergency Able to Problem Solve Situations Medication Management Medication Management No Deficits Identified Money Management Money Management No Deficits Identified Meal Preparation Meal Preparation No Deficits Identified Library Director Library Director No Deficits Identified Driving Driving Caregiver Provides Assist M6 OT- IP Functional Cognition Start: 05/22/20 11:40 Freq: Status: Active Protocol: Document 05/22/20 11:40 CGR (Rec: 05/22/20 12:05 CGR [email or web address]) Cognitive Factors Limiting Selfcare Function Cognitive Ability Level of Alertness Alert Patient Orientation Name,Age,Birthday,Month,Date, Year,Day of Week,Place, Situation Attention Span Ability Capable of Focused Attention, Capable of Sustained Attention Ability to Follow Commands Able to Follow Multi-Step Commands Memory Description No Deficits Noted Safety Awareness No Deficits Noted Problem Solving Ability No deficits Noted OT- Vision and Hearing OT- Hearing Assessment OT- Hearing Assessment WFL OT- Vision Assessment Visual Acuity Glasses All The Time Visual Attentiveness WFL Occular Pursuits WFL Visual Convergence WFL M7 OT- IP Mobility and Balance Start: 05/22/20 11:40 Freq: Status: Active Protocol: Document 05/23/20 10:55 CGR (Rec: 05/23/20 11:08 CGR [email or web address]) OT- Bed Mobility Assessment Supine to Sit Supine to Sit Assist Independent Scooting Scooting to Edge of Bed Independent OT-Transfer Assessment Sit to and From Stand Sit to and from Stand Standby Assistance Transfers Transfer Ability Standby Assistance Technique Transfer Destination Bed,Chair Transfer Technique Stand Step Pivot Devices Transfer Assistive Devices Gait Belt,Front Wheeled Walker Comments Mobility Comments Pt impulsive with sit to stand multiple times from edge of bed and chair stating that he is uncomfortable sitting d/t the perez but also that he becomes sweaty with standing. Pt settled in chair and wanting to eat breakfast. OT- Gait Assessment Comments Gait Ability Comments not performed OT- Balance Assessment Sitting Balance and Reactions Static Sitting Balance Ability Normal Dynamic Sitting Balance Ability Good M8 OT- IP Objective Assessments Start: 05/22/20 11:40 Freq: Status: Active Protocol: Document 05/22/20 11:40 CGR (Rec: 05/22/20 12:05 CGR [email or web address]) OT Gross Range of Motion Upper Extremity Range of Motion Assessment Within Functional Limits OT Strength Upper Extremity Strength Assessment Within Functional Limits OT- Coordination Assessment Upper Extremity Finger to Nose Test Within Functional Limits Finger Tapping Test Within Functional Limits OT-Muscle Tone Assessment Muscle Tone WNL Yes OT Sensation Assessment Edema Edema Absent M9 OT- IP Assessment and Plan Start: 05/22/20 11:40 Freq: Status: Active Protocol: Document 05/23/20 10:55 CGR (Rec: 05/23/20 11:08 CGR [email or web address]) OT Summary Assessment and Plan Potential Rehabilitation Potential Excellent Analytic Complexity at Evaluation Low Summary OT Impairments Functional Mobility,Dressing, Toileting,Bathing,Toilet Transfers,Shower Transfers, Activity Tolerance Progress Towards Goals Progressing Toward Goals Assessment Summary Pt presents as a low complexity evaluation s/p fall and subsequent 05/21 L anterior MIRLANDE. Pt presents as SBA to CGA for mobility on this date d/t fluctuating BP and diaphoresis. Pt with c/o extreme sweating with positional changes and discomfort from the perez on this date. Pt will benefit from continued OT services. Goals Grooming Goal Independent Dressing Goal Independent Toileting Goal Independent Bathing Goal Independent Toilet Transfer Goal Independent Shower Transfer Goal Independent Days to Meet Goals 3 Frequency of Treatment Frequency Of Treatment Once a Day Treatment Plan OT Treatment Plan ADL Training,Functional Mobility,Patient/Family Education,Discharge Planning Other Treatment Recommendations and Next shower and ADLs standing. Treatment Focus Assess dressing. Discharge Recommendations OT Discharge Recommendations Home with Assistance Home Equipment Needs TBD, possible FWW needed. Transportation Needs at Discharge Private Vehicle
--- NOTE | 2020-05-23 09:26 | P.PN_ITS ---
Subjective Subjective Date Patient Seen: 05/23/20 Time Patient Seen: 09:26 Interval history: Patient is POD#2 s/p anterior total hip arthroplasty following a femoral neck fracture with Dr. Johnson. Pain is well controlled with Oxycodone. He has had significant BP issues that are limiting his mobility. He will fluctuate from hypotensive to hypertensive. He has had urinary retention requiring Rosenbaum catheterization. Exam Vital Signs (past 8 hours): - 05/23/20 01:30 05/23/20 04:00 05/23/20 07:58 Temperature 98.1 F 98.1 F Pulse Rate 108 H 111 H Pulse Rate [Orthostatic Lying] 109 H Pulse Rate [Orthostatic Sitting] 124 H Pulse Rate [Orthostatic Standing] 129 H Respiratory Rate 16 16 Blood Pressure 124/81 121/66 Blood Pressure [Orthostatic Lying] 122/67 Blood Pressure [Orthostatic Sitting] 134/86 Blood Pressure [Orthostatic Standing] 138/82 Pulse Oximetry 91 92 Oxygen Delivery Method Room Air Oxygen Flow Rate 0 Narrative Exam Narrative: Patient sitting bedside chair no acute distress. He is alert orient x3. Calves are soft, compressible, nontender bilaterally. Able to actively flex his hip. Able to actively dorsiflex and plantar flex. Dorsalis pedis pulses 2+ symmetrical. Sensation intact light touch throughout bilateral lower extremities. Dressing on left hip is CDI. Objective Labs Result Diagrams: 05/23/20 04:54 05/23/20 04:54 Labs: Laboratory Results - last 24 hr 05/23/20 05/23/20 05/23/20 04:54 04:54 04:54 WBC 8.9 RBC 3.38 L Hgb 10.4 L Hct 31.4 L MCV 92.9 MCH 30.7 MCHC 33.1 RDW 14.0 Plt Count 174 Neut % (Auto) 76.2 H Lymph % (Auto) 11.5 L Rogers % (Auto) 11.2 Eos % (Auto) 0.9 L Baso % (Auto) 0.2 Neut # (Auto) 6800 Lymph # (Auto) 1000 L Rogers # (Auto) 1000 H Eos # (Auto) 100 Baso # (Auto) 0 Sodium 137 Potassium 5.0 Chloride 105 Carbon Dioxide 31 BUN 20 Creatinine 0.78 Estimated GFR > 60.0 BUN/Creatinine Ratio 25.6 H Glucose 111 H Calcium 9.1 Magnesium 1.7 TSH 1.79 Assessment & Plan Post-op Postoperative Procedures: Procedures Operation Date: 05/21/20 15:15 Actual Procedures Side Surgeon p Total Hip Arthroplasty/Anterior Approach Left Jem Johnson MD Patient will continue work with physical therapy and occupational therapy. Patient is stable from an orthopedic standpoint. He will follow up with us in 2 weeks. Hospitalist managing medical comorbidities and discharge planning.
--- NOTE | 2020-05-23 09:40 | PT.IPTN ---
Current Diagnoses Pathological fracture, left femur, initial encounter for fracture (05/21/20) Surgery Performed Operation Date: 05/21/20 15:15 Actual Procedures p Total Hip Arthroplasty/Anterior Approach(Left) - Jem Johnson MD Physical Therapy Treatment Note M2 PT-IP Current Condition Start: 05/22/20 12:54 Freq: NEEDED Status: Active Protocol: Document 05/22/20 11:08 AB (Rec: 05/22/20 13:10 AB [email or web address]) Physical Therapy Current Condition Current Condition Evaluation Date 05/22/20 Treatment Diagnosis s/p L MIRLANDE anterior approach; difficulty in walking Onset Date 05/21/20 Precautions Anterior Hip Precautions No Hip Extension,No Hip External Rotation Weight Bearing Status Weight Bearing Status Weight Bear as Tolerated Allowed Weight Bearing Amount (enter % WBAT LLE or #) (%) M3 PT-IP Subjective Start: 05/22/20 12:54 Freq: NEEDED Status: Active Protocol: Document 05/23/20 09:40 AB (Rec: 05/23/20 12:36 AB [email or web address]) Subjective Physical Therapy Visit Type Type Treatment Note Visit Start Time 09:40 Visit Stop Time 10:05 Total Visit Minutes 25 Number of ACIDIZER Visits 0 Physical Therapy Visit Comments Patient Comments pt is agreeable to do PT M4 PT-IP Mobility and Gait Start: 05/22/20 12:54 Freq: NEEDED Status: Active Protocol: Document 05/23/20 09:40 AB (Rec: 05/23/20 12:36 AB [email or web address]) PT-Transfer Assessment Sit to and From Stand Sit to and from Stand Standby Assistance Comments Mobility Comments pt sitting on chair. BP monitored. BP sitting on chair: 121/79. completed sit to stand SBA and was able to maintain standing using FWW for support. BP in standin/63. pt with c/o nape pressure and hot flashes but stated that he is still feeling on. BP checked again after ~2 min: 80/62. instructed pt to sit down and completed with min A as pt tends to plop back. pt stated that his perez is uncomfortable and affecting on how he will sit. BP in sittin/62. pt agreed to get up again and completed sit to stand SBA. BP checked: 78/61. instructed pt to sit back. BP checked in sittin/72. positioned pt on chair. No ambulation attempted due to decrease BP in standing and pt with c/o head pressure and hot flashes. call light and table placed within reach. Nurse is aware of BP. M5 PT-IP Objective Assessments Start: 05/22/20 12:54 Freq: NEEDED Status: Active Protocol: Document 05/22/20 11:08 AB (Rec: 05/22/20 13:10 AB [email or web address]) Orientation Orientation/Cognition Level of Alertness Alert Orientation Name,Place,Situation Language Function Ability No Deficits Noted Safety Awareness Decreased Safety Awareness Memory Description Short Term Impaired Gross Range of Motion Lower Extremity ROM Assessment Within Functional Limits Strength Lower Extremity Strength Assessment Left Impaired Hip 3+/5 Knee 3+/5 Coordination Assessment Gross Coordination Gross Coordination WNL Sensation Assessment Sensation Gross Sensation WNL Muscle Tone Muscle Tone WNL Yes M6 PT-IP Treatment Start: 05/22/20 12:54 Freq: NEEDED Status: Active Protocol: Document 05/23/20 09:40 AB (Rec: 05/23/20 12:36 AB [email or web address]) Physical Therapy Treatment Education Education Provided Precautions,Safety Other Treatments Other Treatment Performed reviewed hip precautions wtih pt M7 PT-IP Assessment and Plan Start: 05/22/20 12:54 Freq: NEEDED Status: Active Protocol: Document 05/23/20 09:40 AB (Rec: 05/23/20 12:36 [facility] PT Summary Assessment and Plan Potential Rehabilitation Potential Good Summary Impairments Pain,ROM,Strength,Balance, Coordination,Sensation,Bed Mobility,Transfers,Gait, Activity Tolerance Progress Towards Goals Slow Progress due to Medical Issues Assessment Summary pt with orthostatic BP and unable to ambulate this morning due to BP dropping to 78/61 with standing. Pt is also symptomatic with c/o nape pressure and hot flashes. will continue to assess mobility progress but pt is unable to tolerate much activity due to decrease BP. Pt. L hip fracture s/p L MIRLANDE due to a fall sustained after syncope. pt is a high fall risk at this time Goals Bed Mobility Goal Independent Transfer Goal Standby Assistance,Front Wheeled Walker Gait Goal Standby Assistance,Front Wheel Walker Gait Distance 200 Days to Meet Goals 5 Frequency of Treatment Frequency Of Treatment Twice a Day Treatment Plan Physical Therapy Treatment Plan Bed Mobility Training,Transfer Training,Gait Training, Therapeutic Exercise,Balance Retraining,Post Op Education, Discharge Planning,Hot or Cold Pack,Neuromuscular Re-ed, Coordination Retraining,Manual Therapy Other Recommendations and Next Treatment ambulation Focus Recommendations To Nursing Amount of Assist Needed 1 Person Assist Discharge Recommendations PT Discharge Recommendations Home with 13/03 Assist,Home Health,SNF Rehab Transportation Needs at Discharge Private Vehicle,Wheelchair/ Cabulance
--- NOTE | 2020-05-23 09:41 | PC.NURSE ---
Addendum entered by Cynthia Huang R.N. 05/23/20 12:53: Patients perez cath taken out at 1110. He had 125cc in his perez bag. He then attempted to void in the urinal but was only able to produce 15cc of hilton colored urine. He is drinking water and, will bladder scan patient around 1330 and see how much urine he has and report to doctor to see if she would like to place perez again. Original Note: Patient is A&Ox3, he denies pain to his anterior total hip to l side. Aquacel dressing is cdi. Patient up with occupational therapy and instantly became diaphoretic and his blood pressure actually increased to 160s/80s. He does occasionally complain of being nauseous and dizzy. Sitting up in the chair now and talking with physical therapy. Perez patent and putting out yellow/dark colored urine. We are going to take his perez catheter out around 11am and see if he can void, we will give patient a couple of hours to see if he is able to go. If not we may have to put a coudee perez back in him and he may need to see his urologist.
--- NOTE | 2020-05-23 13:45 | PT.IPTN ---
Current Diagnoses Pathological fracture, left femur, initial encounter for fracture (05/21/20) Surgery Performed Operation Date: 05/21/20 15:15 Actual Procedures p Total Hip Arthroplasty/Anterior Approach(Left) - Jem Johnson MD Physical Therapy Treatment Note M2 PT-IP Current Condition Start: 05/22/20 12:54 Freq: NEEDED Status: Active Protocol: Document 05/22/20 11:08 AB (Rec: 05/22/20 13:10 AB [email or web address]) Physical Therapy Current Condition Current Condition Evaluation Date 05/22/20 Treatment Diagnosis s/p L MIRLANDE anterior approach; difficulty in walking Onset Date 05/21/20 Precautions Anterior Hip Precautions No Hip Extension,No Hip External Rotation Weight Bearing Status Weight Bearing Status Weight Bear as Tolerated Allowed Weight Bearing Amount (enter % WBAT LLE or #) (%) M3 PT-IP Subjective Start: 05/22/20 12:54 Freq: NEEDED Status: Active Protocol: Document 05/23/20 13:45 AB (Rec: 05/23/20 15:38 AB [email or web address]) Subjective Physical Therapy Visit Type Type Treatment Note Visit Start Time 13:45 Visit Stop Time 14:55 Total Visit Minutes 70 Number of NEIGHBORHOOD AIDE Visits 0 Physical Therapy Visit Comments Patient Comments pt is agreeable to do PT. spouse in room. Therapy Pain Assessment Pain When Pain Assessed During Mobility Pain Present Pain Present Pain Reported Location Abdomen Scale Used c/o soreness but no pain scale given Pain Management Techniques Distraction,Modification of Treatment M4 PT-IP Mobility and Gait Start: 05/22/20 12:54 Freq: NEEDED Status: Active Protocol: Document 05/23/20 13:45 AB (Rec: 05/23/20 15:38 AB [email or web address]) PT-Transfer Assessment Sit to and From Stand Sit to and from Stand Contact Guard Assistance Equipment Transfer Assistive Device Gait Belt,Front Wheeled Walker Orthotic/Prosthetic Devices or Brace: No Comments Mobility Comments Talked to social work case manager regarding pt's mobility and decrease in BP during morning tx session so no ambulation was completed. informed them that pt came after a fall due to a syncopal episode and pt continues to have decrease in BP during standing and pt is symptomatic. Dr. Romero came in and stated that pt is ready to go home. informed the doctor regarding pt's BP and the doctor stated that the readings are not a true readings. informed the doctor that the BP reading is an objective assessment that PT goes by and if it is not a true reading, then what does she want us to go by. also informed that pt is symptomatic but the doctor stated that the pt told her otherwise. the doctor left and emphasized that pt is ready to go home. demand manager stated that she will wait for PT's session after deciding to push through with d/c. Checked on pt and spouse in room informed spouse regarding pt's BP and mobility level. conducted caregiver training. educated on pt's hip precautions and how to use safety belt and how to assist pt. also recommended pt to have a w/c and for pt to have seating rest stations for pt to sit on around the house for safety. pt and spouse agreed and understood. Spouse was able to kecia safety belt on pt . BP monitored. BP in sittin/65. pt completed sit to stand CGA with spouse assisting. BP checked: 85/60. pt stated that he feels fine but can feel pressure on his nape/neck area. pt was able to maintain standing. BP checked again after ~ 2-3 min: 91/60. pt ambulated in room with spouse assisting ~ 20 ft. BP seated after ambulation: 124/61. Spouse started to weep and stated that she is overwhelmed. stated that before when he had his R hip surgery, he cannot go home until he was able to walk around the hospital and do 13 steps. Informed spouse that pt is not needing much assistance but limited more due to his medical issue/ drop in BP informed pt and spouse that pt has to f/u with pt's hotel clerk. educated pt and spouse regarding BP reading and what are the readings to be concerned about . spouse stated that they have a BP monitor at home. pt agreed to ambulate again. BP checked in sittin/69. completed sit to stand CGA with spouse assisting. BP in standin/48. spouse stated that pt's hotel clerk does not want pt's BP to go down to 50. informed spouse to just relax as spouse started to cry again. informed spouse that the reading of 48 compared to 50 is relative since the difference is just 2 points. spouse stated that she is concerned on what to do if pt is not able to ambulate to sit . informed spouse to check BP in sitting, standing for a few minutes like how we did it during this session and if pt does not feel right and BP continues to drop down, pt has the chair behind him and he can sit back down. BP checked again in standin/56. pt ambulated again 20 ft with spouse assisting using FWW CGA . BP in sittin/75. informed pt and spouse that eventhough BP dropped down during standing to the 80s/50s , reading was stable and did not drop down further. pt and spouse understood. informed nurse that pt wants a shower prior to d/c. nurse set up shower. pt ambulated to the shower room CGA and cues using FWW. NAC came in to assist pt. Talked to spouse regarding equipement needs and stated that she has a FWW already but is concerned regarding obtaining a w/c. informed spouse that PT can given her phone numbers of [facility] that she can inquire regarding w/c. spouse stated that she does not want the phone numbers and will ask hospice at [place] if they have a w/c. Also given spouse ferry schedule and ask [employer] for prior pass for pt. Gait Assessment Gait Gait Assistance Required: Contact Guard Assist Distance (Feet) 20 Able to Maintain Weight Bearing Status Yes During Gait Assistive Devices Assistive Device Gait Belt,Front Wheeled Walker Orthotic/Prosthetic Devices or Brace: No Gait Deviations General Gait Pattern Decreased Stride Length, Decreased Feet Clearance Factors Limiting Gait Function Factors Limiting Gait Function Decreased Activity Tolerance, Decreased Strength,Pain,Poor Balance,Poor Safety Awareness Comments Gait Comments pls refer to mobility section for details M5 PT-IP Objective Assessments Start: 05/22/20 12:54 Freq: NEEDED Status: Active Protocol: Document 05/22/20 11:08 AB (Rec: 05/22/20 13:10 AB [email or web address]) Orientation Orientation/Cognition Level of Alertness Alert Orientation Name,Place,Situation Language Function Ability No Deficits Noted Safety Awareness Decreased Safety Awareness Memory Description Short Term Impaired Gross Range of Motion Lower Extremity ROM Assessment Within Functional Limits Strength Lower Extremity Strength Assessment Left Impaired Hip 3+/5 Knee 3+/5 Coordination Assessment Gross Coordination Gross Coordination WNL Sensation Assessment Sensation Gross Sensation WNL Muscle Tone Muscle Tone WNL Yes M6 PT-IP Treatment Start: 05/22/20 12:54 Freq: NEEDED Status: Active Protocol: Document 05/23/20 13:45 AB (Rec: 05/23/20 15:38 AB [email or web address]) Physical Therapy Treatment Education Education Provided Precautions,Safety Other Treatments Other Treatment Performed reviewed hip precautions with pt and spouse M7 PT-IP Assessment and Plan Start: 05/22/20 12:54 Freq: NEEDED Status: Active Protocol: Document 05/23/20 13:45 AB (Rec: 05/23/20 15:38 AB [email or web address]) PT Summary Assessment and Plan Potential Rehabilitation Potential Good Summary Impairments Pain,ROM,Strength,Balance,Bed Mobility,Transfers,Gait, Activity Tolerance Progress Towards Goals Slow Progress due to Medical Issues,Slow Progress due to Activity Tolerance Assessment Summary caregiver training conducted and educated on equipement needs and home set up for safety at home. informed social work case manager regarding pt's moblity and d/c recommendations. pt stated that he feels he is ready to go home. talked to pt and spouse and emphasized on monitoring BP, short ambulation using FWW and setting up seating station for safety and to f/u with PCP and hotel clerk. pt and spouse understood and agreed. Goals Bed Mobility Goal Independent Transfer Goal Standby Assistance,Front Wheeled Walker Gait Goal Standby Assistance,Front Wheel Walker Gait Distance 200 Days to Meet Goals 5 Frequency of Treatment Frequency Of Treatment Twice a Day Treatment Plan Physical Therapy Treatment Plan Bed Mobility Training,Transfer Training,Gait Training, Therapeutic Exercise,Balance Retraining,Post Op Education, Discharge Planning,Hot or Cold Pack,Neuromuscular Re-ed, Coordination Retraining,Manual Therapy Other Recommendations and Next Treatment ambulation Focus Recommendations To Nursing Amount of Assist Needed 1 Person Assist Discharge Recommendations PT Discharge Recommendations Home with / Assist,Home Health Transportation Needs at Discharge Private Vehicle
--- NOTE | 2020-05-23 14:49 | CM.DPNOTE ---
DC Note Home today, Dr Romero suggests HH, patient and agreeable, understand [facility] is the agency that serves the [facility]. Patient continues to have blood pressure drop w/activity, spouse expresses concern to the staff about taking patient home like this but inevitably agreeable to DC and understands that patient is medically cleared, close outpt f/u w/planning aide and PCP is recommended. Cleared by PT Bambi for DC home. Faxed referral to [facility] to include face sheet, signed F2F, order for RN/PT/OT, clinical and therapy notes. P: DC home w/spouse and [facility] to follow. Start of care unknown at time of note WILLIAM Garibay
--- NOTE | 2020-05-23 15:25 | P.DS_ITS ---
History of Present Illness History of Present Illness Date Patient Seen: 05/21/20 Chief complaint: syncope / hip fracture Narrative: Written by myself Dr. Romero: Josr Alaniz is a 70-year-old male with a past medical history significant for COPD, congestive heart failure, and depression who presented to the ED after with left hip pain and inability to ambulate after vasovagal syncope. The patient reports he was bending over fixing his toilet then stood up quickly and began ambulating down the an[place]y when he began to feel lightheaded. He reports he knew he was going to pass out and grabbed the railing at the edge of his stairs but proceeded to syncopize and fell onto his left hip. He reports immediate left hip pain and inability to bear weight or ambulate. He did not hit his head. There was no loss of bowel or bladder and no seizure-like activity. He endorses significant left hip pain with any movement but no pain at rest. He has no other complaints and denies headache, cough, shortness of breath, chest pain, palpitations, diaphoresis, abdominal pain nausea, vomiting, fever, chills, dysuria, diarrhea or constipation. His spouse Isabel reports he has been quite active. He does report episodes of dizziness and lightheadedness recently. He states that he typically uses inhalers and his medicines to help with congestive heart failure none of which he took this morning. He is able to move all toes and has full sensation and pulses distally. PCP Dr. Pace on [address]. Discharge Providers Provider Date of admission: 05/21/20 13:51 Discharge Date: 05/23/20 Primary care physician: Kendrick Pace MD Consults: 05/21/20 19:09 Consult to Discharge Planning Routine Comment: Consult to Discharge Planning Routine Comment: Consult to Physical Therapy Evaluate & Treat Comment: Physician Instructions: post op MIRLANDE protocol Consult to Respiratory Therapy Evaluate & Treat Comment: Physician Instructions: Evaluate and treat 05/22/20 00:18 Consult to Occupational Therapy Evaluate & Treat Comment: Physician Instructions: Evaluate and treat 05/22/20 13:48 Consult to Dietitian, Adult Routine Comment: Reason For Exam: unintentional wt loss 10 lbs in 1mo 05/23/20 14:37 Consult to Home Health Routine Comment: Reason For Exam: Home Health Upon DC Discharge provider: Jocelyn Romero DO Summary Hospital Course Discharge Diagnosis: 1. Acute pathological left hip fracture, status post total left hip arthroplasty, present on admission. Active. 2. Acute blood loss anemia, present on admission. Stable. 3. Acute dehydration with orthostatic hypotension, present admission. Resolved. 4. COPD emphysema type, chronic, present on admission. Stable. 5. Congestive heart failure, unknown type, chronic, present on admission. Stable. 6. Depression, chronic, present on admission. Stable. 7. History of prostate cancer status post radiation presumably in remission. Hospital Course: Josr Alaniz is a 70-year-old male with a past medical history significant for COPD, congestive heart failure, and depression who presented to the ED after with left hip pain and inability to ambulate after vasovagal syncope. 1. Acute pathological left hip fracture, status post left total hip arthroplasty, present on admission. Active. -Patient had a syncopal episode in which he was bending over, stood up and began ambulating abruptly with lightheadedness and syncopal episode seconds later. No trauma to head. EKG, troponin, and electrolytes all unremarkable and represent vasovagal event from orthostatic hypotension. Patient fell on left hip and had instant left hip pain and inability to bear weight or ambulate. -Left hip x-ray demonstrated left femoral neck fracture. -Consulted orthopedic surgery, Dr. Johnson, who performed a left total hip arthroplasty. Continued postoperative management, pain control and DVT prophylaxis per Orthopedic surgery. Continued aspirin 81 mg twice daily for DVT prophylaxis and famotidine 20 mg twice daily for GI prophylaxis. Continued acetaminophen 975 mg 3 times daily, oxycodone 5 mg every 3 hours for moderate to severe pain and hydromorphone 0.5-1 mg every 6 hours as needed for severe breakthrough pain. -Continued calcium and vitamin-D supplementation. Patient will need to be treated for osteoporosis as an outpatient per PCP or Orthopedic surgery. -Continued physical and occupational therapy evaluation treatment. 2. Acute blood loss anemia, present on admission. Stable. -Secondary to left hip fracture and left hip total arthroplasty. -Initial hemoglobin 13.2. Hemoglobin trended down now 10.4. -Continued to monitor for signs of bleeding and H&H daily. 3. Acute dehydration with orthostatic hypotension, present admission. Resolved. -Patient reports he has not been eating or drinking well and has been working ou t in the sun regularly. He is also on furosemide 30 mg daily at home was NPO for total hip replacement and had insensible losses during surgery. -Patient had positive orthostatic vital signs. Held home furosemide 30 mg daily, lisinopril 5 mg daily and metoprolol succinate 25 mg daily due to orthos tatic hypotension. Received 2 L of normal saline with resolution of orthostasis. Recommended holding these medications for 1-2 days before restarting at home. If the patient has return of symptomatic orthostatic hypotension recommended discontinuing these medications and following up with his PCP. 4. COPD emphysema type, chronic, present on admission. Stable. -Does not represent acute COPD exacerbation. -Chest x-ray did not demonstrate any acute cardiopulmonary process. -COVID 19 negative. -Continued home albuterol 1 puff every 6 hours as needed for shortness of breath or wheezing. -Continued incentive spirometry 10 times an hour every 1 hour while awake to help prevent postoperative pneumonia. 5. Congestive heart failure, unknown type, chronic, present on admission. Stable. -Unclear type of heart failure and will request records from PCP's office. Does not represent acute CHF exacerbation. -Chest x-ray did not demonstrate any acute cardiopulmonary process. -Held home furosemide 30 mg daily, lisinopril 5 mg daily and metoprolol succinate 25 mg daily due to orthostatic hypotension. Recommended holding these medications for 1-2 days before restarting at home. If the patient has return of symptomatic orthostasis recommended discontinuing these medications and following up with his PCP. -Continued to monitor strict I&Os and daily weights. 6. Depression, chronic, present on admission. Stable. -Continued home duloxetine 60 mg daily and bupropion 150 mg twice daily. 7. History of prostate cancer status post radiation presumably in remission. -Patient likely has BPH in setting of prostate cancer. -Patient had acute urinary retention postoperatively and a Rosenbaum catheter was placed. Removed Rosenbaum catheter and the patient was able to spontaneously void. -Started and continued tamsulosin 0.4 mg daily. -Consulted dietitian for unintentional weight loss, however, the patient's weight measurement in the ED was incorrect and he has not lost weight. His weight of 80 kg today 05/23 is his approximate weight at home. -Recommended continued outpatient follow-up with his urologist. Exam Vital Signs (past 8 hours): - 05/23/20 07:58 05/23/20 09:35 05/23/20 09:58 Temperature 98.1 F Pulse Rate 111 H 92 H Pulse Rate [Orthostatic Lying] 111 H Pulse Rate [Orthostatic Standing] 117 H Respiratory Rate 16 16 Blood Pressure 121/66 Blood Pressure [Orthostatic Lying] 121/66 Blood Pressure [Orthostatic Sitting] 161/84 H Blood Pressure [Orthostatic Standing] 80/63 L Pulse Oximetry 92 95 05/23/20 11:48 Temperature 98.2 F Pulse Rate 93 H Pulse Rate [Orthostatic Lying] Pulse Rate [Orthostatic Standing] Respiratory Rate 16 Blood Pressure 92/62 Blood Pressure [Orthostatic Lying] Blood Pressure [Orthostatic Sitting] Blood Pressure [Orthostatic Standing] Pulse Oximetry 94 Oxygen Delivery Method Room Air Oxygen Flow Rate 0 Narrative Exam Narrative: General: Older male resting in bed and in no acute distress, appears older than stated age and chronically ill, appropriately interactive. HEENT: Normocephalic, atraumatic. External ears without defect. Pupils equal, round, and reactive to light. Anicteric sclerae, moist conjunctivae, and no lid lag. Oropharynx free of erythema and cobble stoning with moist mucosa. Neck: Supple with full range of motion. No jugular venous distension. No lymphadenopathy or thyromegaly. Cardiovascular: Regular rate and rhythm without murmurs, rubs, or gallops appreciated. Pulmonary: Clear to auscultation bilaterally without crackles, wheezes, or rhonchi. Normal respiratory effort with no use of accessory muscles. Abdomen: Soft, bowel sounds present, nontender, nondistended. No hepatosplenomegaly or masses appreciated. Extremities: No clubbing, cyanosis, or edema. Left hip with dressing in place C/D/I without surrounding erythema or edema. Skin: Normal temperature, turgor, and texture; no rash, ulcers, or subcutaneous nodules appreciated. Neurological: Cranial nerves grossly intact. Psychiatric: Normal mood and affect. Alert and oriented to person, place, and t jael. Objective Labs Result Diagrams: 05/23/20 04:54 05/23/20 04:54 Labs: Laboratory Results - last 24 hr 05/23/20 05/23/20 05/23/20 04:54 04:54 04:54 WBC 8.9 RBC 3.38 L Hgb 10.4 L Hct 31.4 L MCV 92.9 MCH 30.7 MCHC 33.1 RDW 14.0 Plt Count 174 Neut % (Auto) 76.2 H Lymph % (Auto) 11.5 L Cache % (Auto) 11.2 Eos % (Auto) 0.9 L Baso % (Auto) 0.2 Neut # (Auto) 6800 Lymph # (Auto) 1000 L Cache # (Auto) 1000 H Eos # (Auto) 100 Baso # (Auto) 0 Sodium 137 Potassium 5.0 Chloride 105 Carbon Dioxide 31 BUN 20 Creatinine 0.78 Estimated GFR > 60.0 BUN/Creatinine Ratio 25.6 H Glucose 111 H Calcium 9.1 Magnesium 1.7 TSH 1.79 Discharge Plan Discharge Plan Patient Disposition: Home Health Service Discharge comment: You are being discharged home with home health. You fell and broke your left hip which has been replaced. You were slightly dehydrated causing orthostatic hypotension (blood pressure dropping out) which resolved with 2 L of IV fluids. Recommend holding your blood pressure medications including furosemide, lisinopril and metoprolol for the next several days then restarting these medications. If you continue to have episodes of lightheadedness or dizziness once these have been restarted then discontinue these medications furosemide, lisinopril and metoprolol and follow-up with your primary care physician, Dr. Pace, to discuss whether not to continue these medications in the future. Discharge orders & Medications Prescriptions: New acetaminophen 325 mg Tablet 975 mg PO TID Qty: 40 RF: 0 aspirin 81 mg Tablet,Delayed Release (Dr/Ec) 81 mg PO BID Qty: 40 RF: 0 docusate sodium [DOK] 100 mg Capsule 100 mg PO BID Qty: 40 RF: 0 oxycodone 5 mg Tablet 5 mg PO Q4-6H PRN (Reason: Pain, Moderate (4-6)) Qty: 40 RF: 0 tamsulosin [Flomax] 0.4 mg Capsule 0.4 mg PO DAILY Qty: 30 RF: 0 calcium carbonate-vitamin D3 [Oyster Shell Calcium-Vit D3] 500 mg(1,250mg) - 200 unit Tablet 1 ea PO BIDWM Qty: 60 RF: 0 famotidine 20 mg tablet 20 mg PO BID Qty: 82 RF: 0 Continued [MULTIVITAMIN] PO DAILY Qty: 0 RF: 0 acetaminophen [Tylenol Extra Strength] 500 MG tablet 500 mg PO BID Qty: 0 RF: 0 Combivent Respimat 4 GM mist 1 puff INH QID Qty: 3 RF: 3 [PROBIOTICS] Q DAY Qty: 0 RF: 0 fluticasone propionate [Flonase Allergy Relief] 9.9 ML spray,suspension 0 Intranasal SEE INSTRUCTIONS Qty: 1 RF: 0 fluoxetine 20 MG capsule 20 mg PO QDAY Qty: 90 RF: 0 furosemide 20 mg tablet 30 mg PO DAILY RF: 0 triamcinolone acetonide 0.1 % ointment 0 gm Topical BID PRN (Reason: Allergic Symptoms) RF: 0 mupirocin 2 % ointment 1 applic Topical QID RF: 0 metoprolol succinate 25 mg Capsule,Sprinkle,Er 24hr 25 mg PO DAILY RF: 0 lisinopril 5 mg Tablet 5 mg PO DAILY RF: 0 duloxetine 60 mg Capsule,Delayed Release(Dr/Ec) 60 mg PO BEDTIME RF: 0 Wellbutrin XL 150 mg PO BID RF: 0 Follow up/Referrals: Jem Johnson MD [Physician] - (2 weeks) Kendrick Pace MD [Primary Care Provider] - Diet/Activity/Treatments Diet: Diet as Tolerated Activity: Weight bear as tolerated with a front wheel walker and physical and occupational therapy Cold/Heat Therapy: Ice packs as needed allow skin to return to room temp between icing Skin/Wound/Dressing Care Report to your healthcare provider any signs of infection, such as:: chills, fever, night sweats, unusual drainage and unusual redness Dressing: Aqucel dressing is to remain in place until your 2 week postop, call the office if this becomes saturated Visit Report/Discharge Packet Instructions: DI for Orthostatic Hypotension, DI for Hip Replacement, How to Prevent Falls, Oxycodone Visit Report Forms: Patient Portal/API, Stroke Signs & Symptoms Discharge Data Primary Care Provider: Kendrick Pace
== END 2020-05-23 16:00 | disposition home health service (06) | DRG 522 ==
LOC: ED 13:48 → AC 13:54
PROVIDERS: Orthopaedic Surgery Adult Reconstructive Orthopaedic Surgery; Admitting Provider Internal Medicine; Emergency Provider Emergency Medicine; PCP Family Medicine; Referring Provider Emergency Medicine; Visit Provider Internal Medicine
PROC: 0SRB02A Replacement of Left Hip Joint with Metal on Polyethylene Synthetic Substitute, Uncemented, Open Approach (ICD-10-PCS; CPT 27130; principal; 2020-05-21 15:15)
DX: M84.452A Pathological fracture, left femur, initial encounter for fracture (principal); D62 Acute posthemorrhagic anemia; I50.9 Heart failure, unspecified; R55 Syncope and collapse; J44.9 Chronic obstructive pulmonary disease, unspecified; E86.0 Dehydration; F32.9 Major depressive disorder, single episode, unspecified; Z11.59 Encounter for screening for other viral diseases; Z85.46 Personal history of malignant neoplasm of prostate; Z87.891 Personal history of nicotine dependence
CPT/HCPCS: 36415; 71045; 72170; 73501; 73502; 76000; 80048; 80053; 83735; 84443; 84484; 85014; 85018; 85025; 86850; 86900; 86901; 87635; 93005; 94640; 94760; 94762; 96361; 96374; 96375; 97116; 97162; 97165; 97530; 99284; 99285; C1776; J0690; J1100; J1170; J1885; J2250; J2270; J2274; J2405; J2704; J3010

== ENCOUNTER → 2022-04-07 12:15 | Outpatient (CLI) | payer MEDICARE, SELFPAY ==
[2020-05-21 19:31] VITALS: BMI 24.1
--- NOTE | 2022-04-07 | DI.MRI.S_ITS ---
PROCEDURE: MR CERVICAL SPINE WO CON INDICATIONS: Cervicalgia TECHNIQUE: Noncontrast sagittal T1 spin echo and T2 fast spin echo, sagittal STIR, foraminal oblique sagittal T2 fast spin echo, and axial gradient echo or T2 fast spin echo through the cervical spine. COMPARISON: [facility], MR, MR CERVICAL SPINE WO CON, 12/15/2018, 13:39. FINDINGS: Image quality: Patient motion artifact limits evaluation. Alignment and Curvature: There is normal bony alignment. Bone Marrow: Marrow demonstrates normal overall signal. Spinal Cord: Visualized spinal cord has normal size and signal. No cerebellar tonsillar herniation. Paraspinous Soft Tissues: No paravertebral masses. Prevertebral soft tissues are normal in thickness. C2-C3: Moderate disc desiccation and height loss. No canal stenosis. Moderate bilateral foraminal stenosis. Findings are similar in extent to the study dated December 15, 2018. C3-C4: Moderate disc desiccation and height loss. Broad-based disc bulge. Effacement of the anterior CSF space. No canal stenosis. Severe bilateral foraminal stenosis which is unchanged from the prior study. C4-C5: Severe disc desiccation and height loss. Broad-based disc bulge with the basement of the anterior CSF space. No canal stenosis. Mild bilateral foraminal narrowing. Findings are unchanged. C5-C6: Severe disc desiccation and height loss. Broad-based disc bulge. Effacement of the CSF space with moderate canal stenosis. Severe bilateral foraminal stenosis. The extent of canal stenosis has increased when compared with the prior study. C6-C7: Severe disc desiccation and height loss. Broad-based disc bulge. Effacement of the CSF space and mild canal stenosis. Severe bilateral foraminal stenosis as before. C7-T1: Severe disc desiccation and height loss. Broad-based disc bulge. No canal stenosis. Severe left and moderate right foraminal stenosis. Findings are likely similar to the prior study. IMPRESSION: 1. Limited study given patient motion artifact. 2. Moderate to severe disc desiccation and height loss throughout the cervical spine. Degenerative disc disease is slightly increased at C4-5 and C5-6 when compared with the prior study. 3. Severe bilateral foraminal stenosis at C3-4, C5-6, C6-7, and on the left at C7-T1. Increased stenosis is visualized at C5-6. The foraminal narrowings are otherwise similar to the 2019 study. Dictated by: Jaylene Joyner M.D. on 04/07/2022 at 16:46 Approved by: Jaylene Joyner M.D. on 04/07/2022 at 16:53
== END ==
PROVIDERS: PCP Family Medicine; Referring Provider Family Medicine; Visit Provider Family Medicine
DX: M50.121 Cervical disc disorder at C4-C5 level with radiculopathy (principal); M48.02 Spinal stenosis, cervical region; M47.22 Other spondylosis with radiculopathy, cervical region; G89.29 Other chronic pain
CPT/HCPCS: 72141

== ENCOUNTER → 2023-05-30 12:59 | Outpatient (CLI) | payer MEDICARE, SELFPAY ==
[2020-05-21 19:31] VITALS: BMI 24.1
== END ==
PROVIDERS: PCP Family Medicine; Referring Provider Internal Medicine Pulmonary Disease; Visit Provider Internal Medicine Pulmonary Disease
DX: J43.2 Centrilobular emphysema (principal); F17.210 Nicotine dependence, cigarettes, uncomplicated
CPT/HCPCS: 94060; 94726; 94729

== ENCOUNTER 2023-11-28 17:04 | Emergency (ER) | payer MEDICARE, SELFPAY ==
[2020-05-21 19:31] VITALS: BMI 24.1
[2023-11-28 17:11] VITALS: BP 121/65; PULSE 68; TEMP 36.6; O2SAT 96
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
[2023-11-28 18:11] LABS: Add Manual Diff / Slide Review NO; Basophils Absolute Auto 0 /uL (0-100); Basophils Percent Auto 0.4 % (0-2); Eosinophils Absolute Auto 100 /uL (0-450); Eosinophils Percent Auto 0.9 % (2-4); Hematocrit 42.9 % (41-53); Hemoglobin 14.4 g/dL (13.5-17.5); Lymphocytes Absolute Auto 2600 /uL (1100-4500); Lymphocytes Percent Auto 29.1 % (25-40); Mean Corpuscular HGB Conc 33.5 % (30-36); Mean Corpuscular Hemoglobin 31.2 PG (26-34); Mean Corpuscular Volume 93.3 fL (80-100); Monocytes Absolute Auto 700 /uL (0-900); Monocytes Percent Auto 8.2 % (3-14); Neutrophils Absolute Auto 5500 /uL (1500-7000); Neutrophils Percent Auto 61.4 % (50-75); Platelet Count 257 X10^3/uL (150-400); Red Cell Distribution Width 14.1 % (11.6-14.8)
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
[2023-11-28 18:35] LABS: Acetaminophen < 10 ug/mL (10-30); Alanine Aminotransferase 16 IU/L (<50); Albumin 4.1 g/dL (3.5-5.0); Albumin Globulin Ratio 1.3 (1.0-2.8); Alkaline Phosphatase 67 U/L (38-126); Aspartate Aminotransferase 30 IU/L (17-59); BUN Creatinine Ratio 21.3 (6-22); Bilirubin Total 0.8 mg/dL (0.2-1.3); Blood Urea Nitrogen 20 mg/dL (9-20); Calcium 9.7 mg/dL (8.4-10.2); Carbon Dioxide 31 mmol/L (22-32); Chloride 103 mmol/L (98-107); Estimated Glomerular Filt Rate > 60 mL/min (>60); Ethanol (ETOH) < 10 mg/dL; Globulin 3.1 g/dL (1.7-4.1); Glucose 94 mg/dL (80-110); HEMOLYSIS < 15 (0-50); Potassium 3.8 mmol/L (3.4-5.1); Salicylate < 1.0 mg/dL (<20); Sodium 140 mmol/L (137-145); Total Protein 7.2 g/dL (6.3-8.2)
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
[2023-11-28 19:06] LABS: Thyroid Stimulating Hormone 2.29 uIU/mL (0.47-4.68)
--- NOTE | 2023-11-28 21:13 | PC.NURSE ---
went in to check on patient. pt c/o neck pain stating he hasnt been given his pain pills today. offered to get some for pt, pt declined stating he doesn't want anything from us, he just wants to go home. informed patient that if he wants his normal medications, we have them here and can give them at any time, he only needs to ask. pt declined. pt did allow for a covid swab to be collected.
[2023-11-28 21:28] LABS: Influenza A - CEPHEID Flu A NEGATIVE (NEGATIVE); Influenza B - CEPHEID Flu B NEGATIVE (NEGATIVE); Respiratory Syncytial Virus Negative (Negative)
[2023-11-28 21:37] LABS: COVID-19 CEPHEID 4-PLEX PCR Negative (Negative)
[2023-11-28 23:40] LABS: Appearance Urine UA CLEAR; Bilirubin Urine UA NEGATIVE (NEGATIVE); Color Urine UA YELLOW; Glucose Urine UA NEGATIVE (Negative); Ketones Urine UA 1+ (NEGATIVE); Leukocyte Esterase Urine UA NEGATIVE (NEGATIVE); Nitrite Urine UA NEGATIVE (Negative); Occult Blood Urine UA NEGATIVE (Negative); Protein Urine UA NEGATIVE (Negative)
[2023-11-28 23:44] LABS: UR Morphine/Opiate cutoff 300 Negative (Negative); Urine Amphetamines Negative (Negative); Urine Barbiturates Negative (Negative); Urine Benzodiazepines Negative (Negative); Urine Cocaine Negative (Negative); Urine MDMA Negative (Negative); Urine Methadone Negative (Negative); Urine Methamphetamines Negative (Negative); Urine Oxycodone Positive (Negative); Urine Phencyclidine Negative (Negative); Urine Tetrahydrocannabinol Positive (Negative); Urine Tricyclic Antidepressant Negative (Negative)
[2023-11-28 23:45] VITALS: BP 128/71; PULSE 86; RESP 22; TEMP 36.7; O2SAT 96
[2023-11-28 23:47] LABS: Bacteria Urine None Seen; Culture Indicated Urine Cult Not Indicated; RBC Urine None Seen (0-5/HPF); Squamous Epithelial Cell Urine None Seen (0-5/HPF); Urine Volume 10mL (spun); WBC Urine None Seen (0-5/HPF)
[2023-11-29] VITALS (7 sets, daily range): BP systolic 109–141; BP diastolic 53–85; PULSE 75–88; RESP 12–16; TEMP 36.7; O2SAT 91–95
--- NOTE | 2023-11-29 03:02 | PC.NURSE ---
DCR at bedside.
--- NOTE | 2023-11-29 06:31 | PC.NURSE ---
DCR briefing intervention questionnaire and attempted facility placement paperwork in Pt chart. DCR States no bed available at this time
--- NOTE | 2023-11-29 07:39 | PC.NURSE ---
SWITCHER Note: patient has been pleasant this morning. Warm blankets and hygiene care were offered. Patient was grateful and said Thank you for your help this morning, it already feels uplifting.
--- NOTE | 2023-11-29 08:20 | PC.NURSE ---
[employer] Note: Breakfast and coffee was offered at 0815. Patient consumed 100% of meal. patient remains pleasant.
--- NOTE | 2023-11-29 11:09 | PC.NURSE ---
Pt's medications updated, orders obtained from Dr. Jacques. Of note, does not have Katelyn Petit on formulary.
[2023-11-29] MEDS: FUROSEMIDE 20 MG TABLET PO (11:16)
[2023-11-29] MEDS: OXYCODONE IR 5 MG TABLET PO (11:16)
[2023-11-29] MEDS: BUSPIRONE 5 MG TABLET 15 MG PO ×2 (11:16→17:00)
[2023-11-29] MEDS: FLUoxetine 20 MG CAPSULE PO (11:17)
[2023-11-29] MEDS: METOPROLOL ER 25 MG TABLET PO (11:17)
--- NOTE | 2023-11-29 11:22 | PC.NURSE ---
Patient's interaction with the nurse is pleasant and appropriate. Concerns about medication were addressed as he wasn't sure what he was supposed to take. He appears calm and reasonable at this point.
[2023-11-29] MEDS: ALBUTEROL/IPRATROPIUM 3 ML AMPUL INH (12:33)
--- NOTE | 2023-11-29 13:45 | CM.SWNOTE ---
Addendum entered by Sobia Burrell 11/29/23 18:40: ED CANAL BOAT OPERATOR Note Yury ANDERSON arrives with Rena ANDERSON to assess patient. Yury detains patient and serves patient with LENKA detainment paperwork. CANAL BOAT OPERATOR faxes a copy of detainment paperwork to [facility]. CANAL BOAT OPERATOR and DCR inform patient's spouse of detainment and she is given a couple of LENKA paperwork as DPOA. CANAL BOAT OPERATOR calls [facility] JUSTIN/SOILA Abad to inform her of detainment, prior to this she faxed a copy of her affidavit and this was provided to Yury ANDERSON. She states she will contact the [facility] case management team on [place] regarding patient's disposition. CANAL BOAT OPERATOR calls A and sets up transport for 1944 as patient can arrive at [facility] any time this evening. Plan: patient to transfer to [facility] for LENKA placement this evening leaving at 1944 via BLS. Sobia Burrell, [facility] Original Note: ED CANAL BOAT OPERATOR Note This CANAL BOAT OPERATOR dispatched DCR last evening and it is reported that patient was deemed a walk away due to no placement found. CANAL BOAT OPERATOR speaks jamie Abad from the [facility] JUSTIN and SOILA team (Ph. # [phone]) who reports that there is a bed at [facility] and they can review patient. It is reported that they will need DPOA paperwork from spouse. Jenniffer states she will fax over documentation from patient's outpatient [facility] team which explains patient's sensitivity to medication. CANAL BOAT OPERATOR receives VM from Haven ANDERSON endorsing that [facility] has a bed but they typically take patient's with DPOA ppwk not LENKA. CANAL BOAT OPERATOR speaks with Haven ANDERSON and explains plan to fax a packet to [facility]. CANAL BOAT OPERATOR calls Nima at [facility], it is reported that they have beds and will review patient but want to pursue LENKA and will plan to accept patient if detained. CANAL BOAT OPERATOR is in contact with patient's spouse Tiana who faxes DPOA paperwork and states [place] ferry [place] 1355 and plans to arrive at ED at 1500 with patient belongings. Tiana states she is in support of patient seeking psychiatric treatment. CANAL BOAT OPERATOR reviews this with Haven ANDERSON who states that in the past [facility] has not accepted out of [facility] LENKA. [facility] states that they will accept patient if patient is detained, Accepting provider Psychiatrist Dr. Nato Shabazz. CANAL BOAT OPERATOR informs Haven ANDERSON who states that CANAL BOAT OPERATOR will need to dispatch through [facility] again. CANAL BOAT OPERATOR dispatches DCR at 1311 and explains that patient has placement at [facility] if detained. DCR Yury calls and states that he is assigned and he does not know when he will be present to meet with patient. Plan: Awaiting DCR evaluation, continue to coordinate with [facility] for pending transfer if patient is detained, continue to coordinate with family and patient's outpatient team. Sobia Burrell, [employer]
--- NOTE | 2023-11-29 16:28 | PC.NURSE ---
FUNERAL HOME MANAGER Note: I was talking with the patient and he told me I feel much better than this morning, after taking my morning medication it feels like a cloud was lifted Patient remains pleasant and cooperative.
--- NOTE | 2023-11-29 16:31 | PC.NURSE ---
DCR arrived to speak with patient at [phone]
[2023-11-29] MEDS: LORazepam 0.5 MG TABLET 1 MG PO (17:33)
--- NOTE | 2023-11-29 19:20 | PC.NURSE ---
patient's came to visit. The patient seemed to be pleasant with the and the went home.
[2023-12-01 19:17] LABS: Free T4, Direct Thyroxine 1.76 ng/dL (0.78-2.19)
== END 2023-11-29 20:27 ==
PROVIDERS: Emergency Medicine; Emergency Provider Emergency Medicine; PCP Family Medicine
DX: R45.4 Irritability and anger (principal); F03.911 Unspecified dementia, unspecified severity, with agitation; Z20.822 Contact with and (suspected) exposure to COVID-19
CPT/HCPCS: 0241U; 36415; 80053; 80305; 80320; 80329; 81001; 81003; 84439; 84443; 85025; 99284; A9270; G0480

== ENCOUNTER → 2024-11-19 10:10 | Outpatient (CLI) | payer MEDICARE, SELFPAY ==
[2020-05-21 19:31] VITALS: BMI 24.1
== END ==
PROVIDERS: PCP Family Medicine; Referring Provider Internal Medicine Pulmonary Disease; Visit Provider Internal Medicine Pulmonary Disease
DX: J43.2 Centrilobular emphysema (principal); F17.210 Nicotine dependence, cigarettes, uncomplicated; R94.2 Abnormal results of pulmonary function studies
CPT/HCPCS: 94010; 94729